=== PATIENT | male | born 1965 | race Caucasian/White ===

== ENCOUNTER → 2020-01-29 10:25 | Outpatient (BNVA) | payer MEDICARE, SELFPAY | PROVIDERS: Family Provider Nurse Practitioner Family; PCP Nurse Practitioner Family; Visit Provider Internal Medicine Cardiovascular Disease | DX: I25.5 Ischemic cardiomyopathy (principal); E78.5 Hyperlipidemia, unspecified; Z79.01 Long term (current) use of anticoagulants; R53.82 Chronic fatigue, unspecified; I25.10 Atherosclerotic heart disease of native coronary artery without angina pectoris; G47.33 Obstructive sleep apnea (adult) (pediatric); I10 Essential (primary) hypertension; E78.2 Mixed hyperlipidemia | CPT/HCPCS: 80053; 80061; 83735; 84443; 85025 ==

== ENCOUNTER → 2020-07-29 10:46 | Outpatient (BNVA) | payer MEDICARE, SELFPAY | PROVIDERS: Family Provider Nurse Practitioner Family; PCP Nurse Practitioner Family; Visit Provider Internal Medicine Cardiovascular Disease | DX: E78.2 Mixed hyperlipidemia (principal) | CPT/HCPCS: 80061 ==

== ENCOUNTER → 2020-10-07 09:50 | Outpatient (BNVA) | payer MEDICARE, SELFPAY | PROVIDERS: Family Provider Nurse Practitioner Family; PCP Nurse Practitioner Family; Visit Provider Internal Medicine Cardiovascular Disease | DX: E78.2 Mixed hyperlipidemia (principal) | CPT/HCPCS: 80061; 80076 ==

== ENCOUNTER → 2020-12-23 11:14 | Outpatient (BNVA) | payer MEDICARE, SELFPAY | PROVIDERS: Family Provider Nurse Practitioner Family; PCP Nurse Practitioner Family; Visit Provider Nurse Practitioner | DX: S99.912A Unspecified injury of left ankle, initial encounter (principal); X58.XXXA Exposure to other specified factors, initial encounter; M25.572 Pain in left ankle and joints of left foot | CPT/HCPCS: 73610; 73630 ==

== ENCOUNTER → 2021-01-27 09:37 | Outpatient (BNVA) | payer MEDICARE, SELFPAY | PROVIDERS: Family Provider Nurse Practitioner Family; PCP Nurse Practitioner Family; Visit Provider Family Medicine Adult Medicine | DX: M25.572 Pain in left ankle and joints of left foot (principal); R63.5 Abnormal weight gain; G89.29 Other chronic pain; E78.2 Mixed hyperlipidemia; I10 Essential (primary) hypertension; R53.82 Chronic fatigue, unspecified; A77.0 Spotted fever due to Rickettsia rickettsii; R55 Syncope and collapse; I25.5 Ischemic cardiomyopathy | CPT/HCPCS: 84443; 84550; 85651; 86140; 86431 ==

== ENCOUNTER 2021-02-11 07:48 | Outpatient (CLI) | payer MEDICARE, SELFPAY ==
--- NOTE | 2021-02-11 07:59 | MR_ITS ---
WS: [id number] MRI LEFT ANKLE without CONTRAST. COMPARISON: 12/23/2020 radiographs Multiplanar, multisequence imaging is performed without contrast. Motion artifact on several sequences due to patient being in pain. No acute fracture is identified. There is a very small amount of marrow edema in the medial malleolus . Also small amount of increased signal in the calcaneus near the deltoid insertion site. There is a significant amount of soft tissue inflammation surrounding the posterior tibial tendon and flexor dig itorum longus tendon at the level of the talus. Tendons are displaced from the talus. There is thicke marcy of the tendon sheath with increased fluid. No tear is identified. There is a very small amount o f increased fluid and increased T2 signal surrounding the distal flexor hallucis longus tendon over t he medial malleolus. The Achilles tendon is normal. Small amount of increased fluid and T2 signal rachel rounding the peroneus longus and brevis tendons. The soft tissue inflammatory changes are greatest al darrion the medial malleolus. Superficial and deep bands of the deltoid ligament are abnormal. Superficial ligament is slightly wav y but predominantly intact. There is increased T2 signal and loss of the normal fibers in the deep po rtion of the deltoid ligament. MR/MR ankle LT wo con* [id number] IMPRESSION: 1. Large amount of edema/tendinopathy surrounding the posterior tibial tendon and the flexor digitorum longus tendon but no tear. 2. Torn deep bands of the deltoid ligament. Thinning with suspected partial te ar of the superficial bands. 3. Very small amount of marrow edema in the medial malleolus. No fractures. 4. Very minimal tendinopathy in the flexor hallucis longus tendon. 5. Minimal increased signal in the calcaneus may be marrow injury from the del toid tear.
== END 2021-02-11 07:49 | disposition home or self-care (01) ==
LOC: RADWPI 07:53
PROVIDERS: PCP Family Medicine Adult Medicine; Visit Provider Family Medicine Adult Medicine
DX: M25.572 Pain in left ankle and joints of left foot (principal); S93.422A Sprain of deltoid ligament of left ankle, initial encounter; X58.XXXA Exposure to other specified factors, initial encounter; R60.0 Localized edema
CPT/HCPCS: 73721

== ENCOUNTER → 2021-03-03 11:34 | Outpatient (BNVA) | payer MEDICARE, SELFPAY | PROVIDERS: PCP Family Medicine Adult Medicine; Visit Provider Family Medicine Adult Medicine | DX: I10 Essential (primary) hypertension (principal); Z83.3 Family history of diabetes mellitus; R53.82 Chronic fatigue, unspecified; I25.5 Ischemic cardiomyopathy; I25.10 Atherosclerotic heart disease of native coronary artery without angina pectoris; E66.01 Morbid (severe) obesity due to excess calories | CPT/HCPCS: 80053; 83036 ==

== ENCOUNTER → 2021-03-26 15:04 | Outpatient (BNVA) | payer MEDICARE, SELFPAY | PROVIDERS: PCP Family Medicine Adult Medicine; Referring Provider Family Medicine Adult Medicine; Visit Provider Podiatrist Foot & Ankle Surgery | DX: M79.672 Pain in left foot (principal); Z46.89 Encounter for fitting and adjustment of other specified devices; S93.422A Sprain of deltoid ligament of left ankle, initial encounter; W18.42XA Slipping, tripping and stumbling without falling due to stepping into hole or opening, initial encounter | CPT/HCPCS: 73610; 73630; 97760; L4361 ==

== ENCOUNTER 2021-03-26 16:37 | Outpatient (CLI) | payer MEDICARE, SELFPAY | END 2021-03-26 16:38 | disposition home or self-care (01) | LOC: SPT 16:38 | PROVIDERS: PCP Family Medicine Adult Medicine; Visit Provider Podiatrist Foot & Ankle Surgery | DX: Z46.89 Encounter for fitting and adjustment of other specified devices (principal); S93.402D Sprain of unspecified ligament of left ankle, subsequent encounter; X58.XXXD Exposure to other specified factors, subsequent encounter | CPT/HCPCS: 97760; L4361 ==

== ENCOUNTER 2021-04-07 10:06 | Outpatient (CLI) | payer MEDICARE, SELFPAY ==
--- NOTE | 2021-04-07 10:15 | USCV_ITS ---
Jericho Pardo Jr Age: 56 Gender: M : 1965 Exam Date: 04/07/2021 10:38 Ordering Phys: Pedro Moscoso MD ([email or web address]) Technologist: Jeannie Jimenez Exam Location: [facility] [place] Indication: RECHECK EF BP: 154 / 92 HR: 74 Rhythm: Sinus Technical Quality: Adequate MEASUREMENTS (Male / Female) Normal Values 2D ECHO LV Diastolic Diameter PLAX 5.7 cm 4.2 - 5.9 / 3.9 - 5.3 cm LV Systolic Diameter PLAX 3.2 cm LV Chamber Size 3.2 cm IVS Diastolic Thickness 1.6 cm 0.6 - 1.0 / 0.6 - 0.9 cm IVS Systolic Thickness 1.8 cm LVPW Diastolic Thickness 1.2 cm 0.6 - 1.0 / 0.6 - 0.9 cm LVPW Systolic Thickness 1.7 cm RV Chamber Size 3.1 cm LVOT Diameter 2.0 cm LV Ejection Fraction 2D Teich 74.7 % LV Ejection Fraction MOD 2C 46.0 % LV Ejection Fraction 2C AL 47.7 % LA Diameter 3.7 cm LA Width 2.6 cm LA Height 2.9 cm RA Width 3.8 cm RA Height 3.9 cm Aorta at Sinotubular Diameter 3.5 cm M-MODE LV Diastolic Diameter MM 4.4 cm 4.2 - 5.9 / 3.9 - 5.3 cm LV Systolic Diameter MM 3.6 cm LV Ejection Fraction MM Teich 36.3 % IVS Diastolic Thickness MM 1.5 cm 0.6 - 1.0 / 0.6 - 0.9 cm IVS Systolic Thickness MM 1.4 cm LVPW Diastolic Thickness MM 1.5 cm 0.6 - 1.0 / 0.6 - 0.9 cm LVPW Systolic Thickness MM 1.8 cm Aortic Annulus Diameter 3.8 cm LA Ao Ratio MM 1.0 MV E Point Septal Separation 1.1 cm DOPPLER AV Peak Velocity 114.0 cm/s LVOT Peak Velocity 61.7 cm/s AV Area Cont Eq vti 2.1 cm squared AV Area Cont Eq pk 1.8 cm squared MV Area PHT 4.2 cm squared Mitral E to A Ratio 1.0 MV E' Velocity 39.0 cm/s Mitral E to MV E' Ratio 9.6 Mitral E to LV E' Lateral Ratio 11.4 Mitral E to LV E' Septal Ratio 8.3 TR Peak Velocity 113.5 cm/s TR Peak Gradient 5.2 mmHg TR Mean Velocity 85.9 cm/s TR Mean Gradient 3.4 mmHg TR Velocity Time Integral 28.3 cm PV Peak Velocity 55.0 cm/s RV Acceleration Time 0.1 s RV Ejection Time 0.4 s RV AcT/ET 0.4 FINDINGS Left Ventricle Mild diffuse hypokinesia of the septum and LV apex. LV ejection fraction around 46%.Grade I/IV diastolic dysfunction (abnormal relaxation filling pattern), normal to mildly elevated filling pressures. LV size, upper limit of normal. Segmental wall motion analysis difficult because of the poor ultrasonic window. Right Ventricle Normal right ventricular size and systolic function. Right Atrium The right atrium is normal in size. Left Atrium The left atrium is normal in size. Mitral Valve Thickened mitral valve. Mild mitral annular calcification. Aortic Valve No gross abnormalities noted Tricuspid Valve No gross abnormalities noted Pulmonic Valve Pulmonic valve not well visualized. Pericardium Normal pericardium without effusion. Aorta Normal ascending aorta dimension. CONCLUSIONS Mild diffuse hypokinesia of the septum and LV apex. LV ejection fraction around 46%. Grade I/IV diastolic dysfunction (abnormal relaxation filling pattern), normal to mildly elevated filling pressures. LV size, upper limit of normal. Segmental wall motion analysis difficult because of the poor ultrasonic window. Thickened mitral valve. Mild mitral annular calcification. There is no pericardial effusion. Compared to the study from 03/24/2017, there may not be a significant change Dr Pedro Moscoso MD [facility] (Electronically Signed) Final Date: 08 April 2021 11:43 S
== END 2021-04-07 10:07 | disposition home or self-care (01) ==
LOC: RAD 10:14
PROVIDERS: PCP Family Medicine Adult Medicine; Visit Provider Internal Medicine Cardiovascular Disease
DX: R07.89 Other chest pain (principal); I25.5 Ischemic cardiomyopathy; I34.8 Other nonrheumatic mitral valve disorders
CPT/HCPCS: 93306

== ENCOUNTER → 2021-04-14 10:31 | Outpatient (BNVA) | payer MEDICARE, SELFPAY | PROVIDERS: PCP Family Medicine Adult Medicine; Visit Provider Podiatrist Foot & Ankle Surgery | DX: M25.572 Pain in left ankle and joints of left foot (principal); Z46.89 Encounter for fitting and adjustment of other specified devices | CPT/HCPCS: 73610; 97760; L1902 ==

== ENCOUNTER 2021-04-14 15:06 | Outpatient (CLI) | payer MEDICARE, SELFPAY | END 2021-04-14 15:07 | disposition home or self-care (01) | LOC: SPT 15:08 | PROVIDERS: PCP Family Medicine Adult Medicine; Visit Provider Podiatrist Foot & Ankle Surgery | DX: Z46.89 Encounter for fitting and adjustment of other specified devices (principal); M25.572 Pain in left ankle and joints of left foot | CPT/HCPCS: 97760; L1902 ==

== ENCOUNTER → 2021-06-02 11:23 | Outpatient (BNVA) | payer MEDICARE, SELFPAY | PROVIDERS: PCP Family Medicine Adult Medicine; Visit Provider Family Medicine Adult Medicine | DX: I10 Essential (primary) hypertension (principal); R17 Unspecified jaundice | CPT/HCPCS: 80053 ==

== ENCOUNTER → 2021-12-30 10:20 | Outpatient (BNVA) | payer MEDICARE, SELFPAY | PROVIDERS: PCP Family Medicine Adult Medicine; Visit Provider Family Medicine Adult Medicine | DX: E78.2 Mixed hyperlipidemia (principal); I25.10 Atherosclerotic heart disease of native coronary artery without angina pectoris; I10 Essential (primary) hypertension; M25.572 Pain in left ankle and joints of left foot; G89.29 Other chronic pain; R17 Unspecified jaundice | CPT/HCPCS: 80053; 80061; 85025; 85651 ==

== ENCOUNTER → 2022-07-27 09:53 | Outpatient (BNVA) | payer MEDICARE, SELFPAY | PROVIDERS: PCP Family Medicine Adult Medicine; Visit Provider Internal Medicine Cardiovascular Disease | DX: I25.10 Atherosclerotic heart disease of native coronary artery without angina pectoris (principal); I25.5 Ischemic cardiomyopathy; G47.33 Obstructive sleep apnea (adult) (pediatric); E78.2 Mixed hyperlipidemia; I10 Essential (primary) hypertension; Z87.891 Personal history of nicotine dependence | CPT/HCPCS: 99214 ==

== ENCOUNTER 2022-08-03 09:59 | Outpatient (CLI) | payer MEDICARE, SELFPAY ==
[2022-08-03 11:16] LABS: Chol HDL Ratio 4.49 mg/dL (1.0-5.00); Cholesterol 193 mg/dL (0-200); HDL Cholesterol 43 mg/dL (60-100); LDL Cholesterol Calculated 104 mg/dL (50-129); LDL HDL Ratio 2.42 RATIO (0.00-3.22); Triglycerides 231 mg/dL (0-150)
== END 2022-08-03 10:00 | disposition home or self-care (01) ==
PROVIDERS: Internal Medicine Cardiovascular Disease; PCP Family Medicine Adult Medicine; Visit Provider Internal Medicine
DX: E78.5 Hyperlipidemia, unspecified (principal); E78.2 Mixed hyperlipidemia
CPT/HCPCS: 36415; 80061

== ENCOUNTER → 2023-02-08 11:34 | Outpatient (BNVA) | payer MEDICARE, SELFPAY | PROVIDERS: PCP Family Medicine Adult Medicine; Visit Provider Internal Medicine Cardiovascular Disease | DX: I25.10 Atherosclerotic heart disease of native coronary artery without angina pectoris (principal); G47.33 Obstructive sleep apnea (adult) (pediatric); I10 Essential (primary) hypertension; E78.2 Mixed hyperlipidemia; I25.5 Ischemic cardiomyopathy; R20.0 Anesthesia of skin; Z87.891 Personal history of nicotine dependence; Z79.82 Long term (current) use of aspirin | CPT/HCPCS: 99214 ==

== ENCOUNTER → 2023-08-18 10:44 | Outpatient (BNVA) | payer MEDICARE, SELFPAY | PROVIDERS: PCP Family Medicine Adult Medicine; Visit Provider Internal Medicine Cardiovascular Disease | DX: I25.5 Ischemic cardiomyopathy (principal); I25.10 Atherosclerotic heart disease of native coronary artery without angina pectoris; E78.2 Mixed hyperlipidemia; I10 Essential (primary) hypertension; Z87.891 Personal history of nicotine dependence | CPT/HCPCS: 99214 ==

== ENCOUNTER → 2024-01-27 16:30 | Outpatient (BNVA) | payer MEDICARE, SELFPAY | PROVIDERS: PCP Family Medicine Adult Medicine; Visit Provider Internal Medicine Cardiovascular Disease | DX: R06.02 Shortness of breath (principal) | CPT/HCPCS: 80048; 83880 ==

== ENCOUNTER 2024-07-30 14:55 | Inpatient (IN) | payer MEDICARE, SELFPAY ==
[2024-07-30] VITALS (40 sets, daily range): BP systolic 80–172; BP diastolic 54–85; PULSE 87–115; RESP 18–29; TEMP 36.8–38.4; O2SAT 89–94; BMI 46.2
--- NOTE | 2024-07-30 15:47 | XRR_ITS ---
PROCEDURE INFORMATION: Exam: XR Chest Exam date and time: 07/30/2024 4:16 PM Age: 59 years old Clinical indication: Fever; Prior surgery; Surgery date: 6+ months; Surgery type: Cardiac stents TECHNIQUE: Imaging protocol: Radiologic exam of the chest. Views: 1 view. COMPARISON: CT abdomen pelvis w con* [id number] 11/02/2018 1:10 PM FINDINGS: Lungs: Unremarkable. No consolidation or mass. Pleural spaces: Unremarkable. No pleural effusion. No pneumothorax. Heart/Mediastinum: Unremarkable. No cardiomegaly. Bones/joints: Unremarkable. XR/XR chest 1V portable [id number] IMPRESSION: No acute findings.
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
[2024-07-30] MEDS: acetaminophen 325 mg Tablet 650 MG PO ×2 (16:08→23:14)
[2024-07-30 16:25] LABS: Basophils # 0.1 10^3/uL (0.0-0.1); Basophils % 0.6 %; Eosinophils % 0.2 %; Hematocrit 46.6 % (37-53); Lymphocytes # 0.9 10^3/uL (0.8-4.8); Lymphocytes % 11.5 %; Mean Corpuscular HGB Conc 31.8 g/dL (30-55); Mean Corpuscular Hemoglobin 27.6 pg (27-33); Mean Corpuscular Volume 86.9 fl (82-101); Neutrophils # 6.14 10^3/uL (1.8-7.7); Neutrophils % 74.8 %; Nucleated Red Blood Cells % 0 %; Platelet Count 181 10^3/cmm (157-399); Red Blood Count 5.36 10^6/uL (3.85-5.65); Red Cell Distribution Width 14.9 % (12.1-15.1)
--- NOTE | 2024-07-30 16:39 | ECG_ITS ---
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 Measurements Intervals [place] Rate: 99 P: 53 ND: 166 QRS: -78 QRSD: 173 T: 72 QT: 381 QTc: 490 Interpretive Statements SINUS RHYTHM RIGHT BUNDLE BRANCH BLOCK [120+ ms QRS DURATION, UPRIGHT V1, 40+ ms S IN I/aVL/V4/V5/V6] LEFT ANTERIOR FASCICULAR BLOCK [QRS AXIS <= -45, QR IN I, RS IN II] ANTEROSEPTAL MYOCARDIAL INFARCTION , OF INDETERMINATE AGE [40+ ms Q WAVE IN V1-V4] No previous ECG available for comparison Electronically Signed On 07-30-2024 22:30:31 SERVICE ORDER CLERK by Pedro Moscoso M.D. [email or web address]
[2024-07-30 16:40] LABS: D Dimer 0.56 ug/mLFEU (0-0.59)
[2024-07-30 16:43] LABS: Alanine Aminotransferase 39 U/L (0-41); Albumin Level 3.9 g/dL (3.5-5.2); Alkaline Phosphatase 84 U/L (40-130); Anion Gap 18.8 (5-19); Aspartate Amino Transferase 36 U/L (0-40); Blood Urea Nitrogen 12 mg/dL (8-23); Calcium 9.5 mg/dL (8.5-10.5); Carbon Dioxide 23 mmol/L (22-29); Chloride 98 mmol/L (98-107); Creatinine Clr Calc Pharmacy 115.3883; Globulin 3.4 g/dL (1.3-4.6); Glucose 110 mg/dL (65-115); Osmolality Calculated 282 mOsm/kg (285-295); Potassium 3.8 mmol/L (3.5-5.1); Sodium 136 mmol/L (136-145); Total Bilirubin 1.7 mg/dL (0.15-1.2); Total Protein 7.3 g/dL (6.6-8.7)
[2024-07-30 16:44] LABS: Troponin(5th) Baseline 10 ng/L (0-15)
[2024-07-30 16:52] LABS: Covid PCR NEGATIVE (Negative); Influenza A POSITIVE (Negative); Influenza B NEGATIVE (Negative); Respiratory Syncytial Virus Ce NEGATIVE (Negative)
[2024-07-30 16:59] LABS: Bilirubin Urine Negative (Negative); Blood Urine Negative (Negative); Glucose Urine UA Negative (Normal); Ketones Urine Trace (Negative); Leukocyte Esterase Urine Negative (Negative); Nitrate Urine Negative (Negative); Protein Urine 1+ (Negative); Specific Gravity, Urine 1.024 (1.005-1.030); Urine Appearance Clear (CLEAR); Urine Color Yellow (Yellow); pH Urine 7.5 (5-7)
--- NOTE | 2024-07-30 17:03 | CTR_ITS ---
PROCEDURE INFORMATION: Exam: CT Chest Without Contrast; Diagnostic Exam date and time: 07/30/2024 5:18 PM Age: 59 years old Clinical indication: Hyperventilation; Additional info: Hypoxemia TECHNIQUE: Imaging protocol: Diagnostic computed tomography of the chest without contrast. Radiation optimization: All CT scans at this facility use at least one of these dose optimization techniques: automated exposure control; mA and/or kV adjustment per patient size (includes targeted exams where dose is matched to clinical indication); or iterative reconstruction. COMPARISON: CR (CHEST, ) 07/30/2024 4:16 PM RADIATION DOSE METRICS: Total DLP (mGy-cm): 747.94 FINDINGS: Lungs: Focal atelectasis involves the left lower lobe. I see no lung mass or infiltrate. Pleural spaces: Unremarkable. No pneumothorax. No pleural effusion. Heart: Unremarkable. No cardiomegaly. No pericardial effusion. Coronary arteries: Coronary artery calcifications are noted. Lymph nodes: Unremarkable. No enlarged lymph nodes. Vasculature: Unremarkable. No aortic aneurysm. Bones/joints: Unremarkable. No acute fracture. Soft tissues: Unremarkable. CT/CT chest con [id number] IMPRESSION: No acute findings.
[2024-07-30 17:04] LABS: Add Urine Microscopic? YES; Bacteria Urine None Seen /hpf; RBC Urine 0-2 /hpf (0-2); Squamous Epithelial Cell Urine 0-5 /hpf (0-5); WBC Urine 0-5 /hpf (0-5)
[2024-07-30] MEDS: acetaminophen 1,000 MG/100 ML PIGGYBACK 400 MG IV (17:36)
[2024-07-30] MEDS: doxycycline 100 MG in sodium chloride 0.9% (plus) 100 ML IV (18:10)
[2024-07-30] MEDS: sodium chloride 0.9% 1,000 ML 999 ML IV ×2 (18:14→18:47)
--- NOTE | 2024-07-30 18:18 | ECG_ITS ---
[facility] Test Date: 2024-07-30 Pat Name: Pancho Pardo Department: Room: Gender: Male Foster Parent: : 1965 Requested By: Lakeisha Berrios Order Number: [id number] Vicente MD: Pedro Moscoso M.D. Measurements Intervals [place] Rate: 84 P: 47 [place]: 164 QRS: -78 QRSD: 173 T: 65 QT: 411 QTc: 487 Interpretive Statements SINUS RHYTHM RIGHT BUNDLE BRANCH BLOCK [120+ ms QRS DURATION, UPRIGHT V1, 40+ ms S IN I/aVL/V4/V5/V6] LEFT ANTERIOR FASCICULAR BLOCK [QRS AXIS <= -45, QR IN I, RS IN II] ANTEROSEPTAL MYOCARDIAL INFARCTION , OF INDETERMINATE AGE [40+ ms Q WAVE IN V1-V4] Compared to ECG 07/30/2024 16:39:43 No significant changes Electronically Signed On 07-30-2024 22:39:00 INSURANCE LOSS ASSESSOR by Pedro Moscoso M.D. [email or web address]
[2024-07-30] MEDS: albuterol 2.5 mg/3 mL Neb INHALATION (18:23)
[2024-07-30 18:59] LABS: Troponin 5 2HR 9.28 ng/L (0-15)
[2024-07-30 19:01] LABS: Troponin 5 2HR Delta -0.72 ABS# (0-10)
[2024-07-30] MEDS: methylPREDNISolone sod succ 125 mg/2 mL INJ IVP (19:14)
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
[2024-07-30] MEDS: enoxaparin 40 mg/0.4 mL Syringe SUBCUT (20:01)
[2024-07-30] MEDS: cefTRIAXone 1,000 mg SDV 1000 MG IVP (20:02)
[2024-07-30 21:47] LABS: ABG PCO2 30.2 mmHg (35-45); ABG PH Result 7.49 (7.35-7.45); Arterial Blood Gas Hematocrit 45.8 % (42-52); Base Excess ABG 0.6 mmol/L (-2.0-2.0); Blood Gas Allen Test Pos; Blood Gas Operator Identificat JDB; Blood Gas Sample Site Radial, right; Blood Gas Sample Type Arterial; HCO3 ABG 22.9 mmol/L (22-26); Oxygen Device NC
--- NOTE | 2024-07-30 22:25 | ECG_ITS ---
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 Measurements Intervals Aneta Rate: 94 P: 60 NE: 172 QRS: -72 QRSD: 185 T: 64 QT: 422 QTc: 529 Interpretive Statements SINUS RHYTHM RIGHT BUNDLE BRANCH BLOCK [120+ ms QRS DURATION, UPRIGHT V1, 40+ ms S IN I/aVL/V4/V5/V6] LEFT ANTERIOR FASCICULAR BLOCK [QRS AXIS <= -45, QR IN I, RS IN II] ANTEROSEPTAL MYOCARDIAL INFARCTION , OF INDETERMINATE AGE [40+ ms Q WAVE IN V1-V4] Compared to ECG 07/30/2024 18:18:50 No significant changes Electronically Signed On 07-30-2024 22:39:07 INFORMATION ASSURANCE OFFICER by Pedro Moscoso M.D. [email or web address]
[2024-07-30] MEDS: ampicillin 500 mg SDV IVP (22:42)
[2024-07-30] MEDS: vancomycin 1,500 MG/300 ML PIGGYBACK 200 MG IV (22:44)
[2024-07-30 23:01] LABS: Troponin 5 6HR 10.89 ng/L (0-15); Troponin 5 6HR Delta 0.89 ng/L (0-12)
[2024-07-31] VITALS (96 sets, daily range): BP systolic 122–178; BP diastolic 65–110; PULSE 71–116; RESP 14–40; TEMP 36.4–37; O2SAT 85–97
[2024-07-31] MEDS: ipratropium-albuterol 3 mL Neb INHALATION ×3 (02:01→13:22)
[2024-07-31] MEDS: piperacillin-tazobactam 3.375 GM in sodium chloride 0.9% (plus) 50 ML IV ×3 (02:02→17:29)
[2024-07-31] MEDS: ampicillin 500 mg SDV IVP ×3 (04:15→16:18)
[2024-07-31 05:36] LABS: Basophils % 0.2 %; Hematocrit 46.3 % (37-53); Lymphocytes # 0.5 10^3/uL (0.8-4.8); Lymphocytes % 8.9 %; Mean Corpuscular HGB Conc 31.5 g/dL (30-55); Mean Corpuscular Hemoglobin 27.7 pg (27-33); Mean Corpuscular Volume 87.7 fl (82-101); Mean Platelet Volume 10.7 fL (7.4-10.4); Monocytes # 0.1 10^3/uL (0.2-0.9); Monocytes % 1.8 %; Neutrophils # 4.44 10^3/uL (1.8-7.7); Neutrophils % 88.1 %; Nucleated Red Blood Cells % 0 %; Platelet Count 142 10^3/cmm (157-399); Red Blood Count 5.28 10^6/uL (3.85-5.65); Red Cell Distribution Width 15.2 % (12.1-15.1); White Blood Count 5.04 10^3/uL (3.29-11.43)
[2024-07-31 05:52] LABS: Alanine Aminotransferase 36 U/L (0-41); Albumin Level 3.7 g/dL (3.5-5.2); Alkaline Phosphatase 77 U/L (40-130); Blood Urea Nitrogen 13 mg/dL (8-23); Calcium 8.8 mg/dL (8.5-10.5); Carbon Dioxide 22 mmol/L (22-29); Chloride 100 mmol/L (98-107); Globulin 3.5 g/dL (1.3-4.6); Glucose 181 mg/dL (65-115); Osmolality Calculated 287 mOsm/kg (285-295); Sodium 136 mmol/L (136-145); Total Bilirubin 1.2 mg/dL (0.15-1.2); Total Protein 7.2 g/dL (6.6-8.7)
[2024-07-31 05:57] LABS: Aspartate Amino Transferase 32 U/L (0-40)
[2024-07-31] MEDS: vancomycin 1,500 MG/300 ML PIGGYBACK 200 MG IV ×3 (07:41→23:15)
[2024-07-31 07:42] LABS: MRSA PCR OZH (swab) NOT DETECTED (Negative)
[2024-07-31 07:53] LABS: Glucose Point of Care 147 mg/dL (70-110)
--- NOTE | 2024-07-31 07:58 | PHA.VACGOAL ---
Vancomycin Goal - Goal Vancomycin Goal:: 15-20 mg/L Vancomycin Indication:: Other (MENNINGITIS) - Therapy Current therapy:: Ampicillin IV, Pip/Tazo Day of therpy:: Day [1]of [] . Actual body weight (kg): 154.221 kg - Data Labs: WBC 5.04 10^3/uL (3.29-11.43) 07/31/24 05:01 RBC 5.28 10^6/uL (3.85-5.65) 07/31/24 05:01 Hgb 14.60 g/dL (11.27-16.99) 07/31/24 05:01 Hct 46.3 % (37-53) 07/31/24 05:01 MCV 87.7 fl (82-101) 07/31/24 05:01 MCH 27.7 pg (27-33) 07/31/24 05:01 MCHC 31.5 g/dL (30-55) 07/31/24 05:01 RDW 15.2 % (12.1-15.1) H 07/31/24 05:01 Sodium 136 mmol/L (136-145) 07/31/24 05:01 Potassium 4.0 mmol/L (3.5-5.1) 07/31/24 05:01 Chloride 100 mmol/L (98-107) 07/31/24 05:01 Carbon Dioxide 22 mmol/L (22-29) 07/31/24 05:01 Anion Gap 18.0 (5-19) 07/31/24 05:01 BUN 13 mg/dL (8-23) 07/31/24 05:01 Creatinine 1.0 mg/dL (0.7-1.2) 07/31/24 05:01 GFR Calculation 76.0 mL/min (90-130) L 07/31/24 05:01 Treatment plan:: new consult Regimen:: 1500 MG Q8H. Trough scheduled for 07/31 @2200.
[2024-07-31] MEDS: oseltamivir phosphate 75 mg Capsule PO ×2 (09:00→17:29)
[2024-07-31] MEDS: pantoprazole DR 40 mg Tablet PO (09:00)
[2024-07-31] MEDS: acetaminophen 325 mg Tablet 650 MG PO (09:08)
--- NOTE | 2024-07-31 09:57 | PC.NURSE ---
Patient is not wanting to have LP done and is requesting to speak with doctor before having it done. Notified Dr. Castro of patient not wanting to have the LP done and wanting to talk to him about need to have LP done. Notified radiology that patient is not wanting to have LP done and that Dr. Chase has been notified that patient is wanting to talk to him prior to making a decision about having procedure.
[2024-07-31] MEDS: levalbuterol 0.63 mg/3 mL Neb INHALATION (19:49)
--- NOTE | 2024-07-31 20:43 | PM.PN ---
Subjective Subjective: He is overall feeling somewhat better. Still generally weak. Not quite as short of breath. No headache, no neck pain or stiffness. Vitals/I&O/Wt Last Vital Signs Temp 98.2 F 07/31/24 16:00 Pulse 98 07/31/24 19:52 Resp 18 07/31/24 19:52 BP 139/84 07/31/24 18:00 Pulse Ox 95 07/31/24 19:52 O2 Del Method Nasal Cannula 07/31/24 19:52 O2 Flow Rate 3 07/31/24 19:52 07/31/24 07/31/24 07/31/24 06:59 14:59 22:59 Intake Total 350 / 450 300 / 300 350 / 650 Balance 350 / 450 300 / 300 350 / 650 Weight last 48 hrs Weight 154.221 kg Weight 154.221 kg Weight 154.5 kg Weight 146.51 kg Physical Exam Narrative: Generally weak. Ill-appearing. Const: COMMON NORMALS: patient oriented x3 and alert GENERAL APPEARANCE: cooperative ORIENTATION/CONSCIOUSNESS: Yes awake HENMT: COMMON NORMALS: oropharynx normal Neck/C-Spine: COMMON NORMALS: no JVD Resp: COMMON NORMALS: normal respiratory effort and clear to auscultation bilaterally AUSCULTATION: clear to auscultation bilaterally Cardio: COMMON NORMALS: no JVD, regular rhythm, S1 normal heart sound present, S2 normal heart sound present and No murmurs present (Cardio) RHYTHM: regular rhythm HEART SOUNDS: S1 normal heart sound present and S2 normal heart sound present GI: COMMON NORMALS: Normal to inspection, nondistended, normoactive bowel sounds present, Soft to palpation and non-tender PALPATION: Yes Soft to palpation Extremity: COMMON NORMALS: no joint enlargement and no pedal edema Neuro: COMMON NORMALS: patient oriented x3 and moves all extremities SENSORIUM/ORIENTATION: Yes alert OTHER: Negative Brudzinski. Skin: COMMON NORMALS: no rashes or lesions noted GENERAL SKIN EXAM: no rashes or lesions noted Data 07/31/24 05:01 07/31/24 05:01 Micro: Microbiology 07/30/24 16:17 Blood Culture - Preliminary Blood NEGATIVE TO DATE 07/30/24 16:17 Blood Culture - Preliminary Blood NEGATIVE TO DATE 07/31/24 13:25 Gram Stain - Final Sputum - Expectorated Sputum A&P Assessment and plan (1) Hypotension: (2) Anxiety and depression: (3) Morbid obesity: (4) Influenza A: (5) Hypoxemia: (6) Obstructive sleep apnea: (7) Fever: Plan Fever with headache and hallucination along syncope Severe influenza with systemic symptoms with hypotension. New hypoxia. Continue Tamiflu. Initial concern for complication with meningitis. He expressed he did not want to have LP, although without meningeal signs. LP canceled. For now empirically on broad-spectrum antibiotics given severity of presentation. Stopped ampicillin. Continue Zosyn, vancomycin for now, will discontinue in case of continued improvement. Patient is not confused I would not add acyclovir at this point He has also received antibiotics, received IV steroids in the ER He also received 2 L bolus Discussed with respite therapy, switch to levo butyryl due to some tachycardia with breathing treatments. Hypotension: Reviewed vitals, CBC, chemistry, hypotension so far resolved. Weaned off pressor. Stop Levophed discussed with nursing, case making machine operator. Transfer out of ICU. Hold antihypertensives. Trial of clear liquid diet. History of CHF, hold antihypertensive regimen along diuretics Patient's blood pressure improved with gentle fluid hydration Ischemic cardiomyopathy EF 46%: Closely monitor for any sign of fluid overload because he is getting multiple antibiotics Compensated for now History of obstructive sleep apnea Will use CPAP overnight currently requiring 3 L which is new requirement of oxygen for him In anticipation of lumbar puncture in the morning hold off on Lovenox DVT prophylaxis Cardiac diet Isolation precautions On discussion with him currently without headache, Sarika is negative. Attestations Medical Necessity Statement*: Continue admission for assessment and management of severe influenza A illness. and High MDM includes amount and/or complexity of data reviewed/ordered [ resulted lab(s)/test(s), ordered lab(s)/test(s) and other healthcare professional discussion] as documented Diagnoses Hypotension I95.9 Anxiety and depression F41.9; F32.A Morbid obesity E66.01 Influenza A J10.1 Hypoxemia R09.02 Obstructive sleep apnea G47.33 Fever R50.9
[2024-07-31 23:13] LABS: Vancomycin Trough 14.9 ug/mL (10-15)
[2024-08-01] VITALS (30 sets, daily range): BP systolic 123–161; BP diastolic 64–91; PULSE 65–99; RESP 14–25; TEMP 36.8–36.9; O2SAT 84–99
[2024-08-01] MEDS: piperacillin-tazobactam 3.375 GM in sodium chloride 0.9% (plus) 50 ML IV ×3 (01:00→18:12)
[2024-08-01] MEDS: levalbuterol 0.63 mg/3 mL Neb INHALATION ×3 (01:53→14:02)
[2024-08-01 03:32] LABS: Basophils % 0.3 %; Eosinophils % 0.1 %; Hematocrit 47.7 % (37-53); Lymphocytes # 1.5 10^3/uL (0.8-4.8); Mean Corpuscular HGB Conc 31.2 g/dL (30-55); Mean Corpuscular Hemoglobin 27.7 pg (27-33); Mean Corpuscular Volume 88.8 fl (82-101); Mean Platelet Volume 10.1 fL (7.4-10.4); Monocytes # 1.1 10^3/uL (0.2-0.9); Monocytes % 10.9 %; Neutrophils # 7.79 10^3/uL (1.8-7.7); Neutrophils % 74.2 %; Nucleated Red Blood Cells % 0 %; Platelet Count 168 10^3/cmm (157-399); Red Blood Count 5.37 10^6/uL (3.85-5.65); Red Cell Distribution Width 15.3 % (12.1-15.1); White Blood Count 10.49 10^3/uL (3.29-11.43)
[2024-08-01 03:54] LABS: Alanine Aminotransferase 32 U/L (0-41); Albumin Level 3.9 g/dL (3.5-5.2); Alkaline Phosphatase 74 U/L (40-130); Anion Gap 16.1 (5-19); Aspartate Amino Transferase 22 U/L (0-40); Blood Urea Nitrogen 13 mg/dL (8-23); Calcium 9.1 mg/dL (8.5-10.5); Carbon Dioxide 27 mmol/L (22-29); Chloride 102 mmol/L (98-107); Creatinine Clr Calc Pharmacy 118.7726; Globulin 3.1 g/dL (1.3-4.6); Glucose 113 mg/dL (65-115); Osmolality Calculated 293 mOsm/kg (285-295); Potassium 4.1 mmol/L (3.5-5.1); Sodium 141 mmol/L (136-145); Total Bilirubin 1.2 mg/dL (0.15-1.2)
[2024-08-01] MEDS: oseltamivir phosphate 75 mg Capsule PO ×2 (08:42→18:12)
[2024-08-01] MEDS: pantoprazole DR 40 mg Tablet PO (08:42)
[2024-08-01] MEDS: vancomycin 1,500 MG/300 ML PIGGYBACK 200 MG IV ×3 (08:42→23:09)
--- NOTE | 2024-08-01 19:59 | PM.PN ---
Subjective Subjective: He has intermittent burning, bothersome cough especially after breathing treatments. Feels like there is phlegm buildup/chest congestion which he cannot bring up. He is worried about his who seems to also be developing symptoms of acute viral illness. Vitals/I&O/Wt Last Vital Signs Temp 98.5 F 08/01/24 09:44 Pulse 81 08/01/24 18:00 Resp 22 H 08/01/24 18:00 BP 161/87 08/01/24 19:00 Pulse Ox 97 08/01/24 18:00 O2 Del Method Nasal Cannula 08/01/24 14:00 O2 Flow Rate 3 08/01/24 14:00 08/01/24 08/01/24 08/01/24 06:59 14:59 22:59 Intake Total 350 / 1050 300 / 300 350 / 650 Balance 350 / 1050 300 / 300 350 / 650 Weight last 48 hrs Weight 153.314 kg Weight 154.221 kg Weight 154.221 kg Weight 154.5 kg Physical Exam Narrative: Generally weak. Ill-appearing. Const: COMMON NORMALS: patient oriented x3 and alert GENERAL APPEARANCE: cooperative ORIENTATION/CONSCIOUSNESS: Yes awake HENMT: COMMON NORMALS: oropharynx normal Neck/C-Spine: COMMON NORMALS: no JVD Resp: COMMON NORMALS: normal respiratory effort and clear to auscultation bilaterally AUSCULTATION: clear to auscultation bilaterally Cardio: COMMON NORMALS: no JVD, regular rhythm, S1 normal heart sound present, S2 normal heart sound present and No murmurs present (Cardio) RHYTHM: regular rhythm HEART SOUNDS: S1 normal heart sound present and S2 normal heart sound present GI: COMMON NORMALS: Normal to inspection, nondistended, normoactive bowel sounds present, Soft to palpation and non-tender PALPATION: Yes Soft to palpation Extremity: COMMON NORMALS: no joint enlargement and no pedal edema Neuro: COMMON NORMALS: patient oriented x3 and moves all extremities SENSORIUM/ORIENTATION: Yes alert OTHER: Negative Brudzinski. Skin: COMMON NORMALS: no rashes or lesions noted GENERAL SKIN EXAM: no rashes or lesions noted Data 08/01/24 02:58 08/01/24 02:58 Micro: Microbiology 07/31/24 13:25 Gram Stain - Final Sputum - Expectorated Sputum Sputum Culture - Preliminary 07/30/24 16:17 Blood Culture - Preliminary Blood NEGATIVE TO DATE 07/30/24 16:17 Blood Culture - Preliminary Blood NEGATIVE TO DATE A&P Assessment and plan (1) Hypotension: (2) Anxiety and depression: (3) Morbid obesity: (4) Influenza A: (5) Hypoxemia: (6) Obstructive sleep apnea: (7) Fever: Plan Influenza A pneumonia: Severe pneumonia with influenza A with hypoxia, requiring 3 L of oxygen stable. Still desaturating down into low 80s with short distance ambulation trying to walk to the bathroom. Still chest congestion, difficulty bringing up phlegm. Wheezing. Continue breathing treatments, although these do trigger uncomfortable cough. Had guaifenesin, flutter valve, Tessalon Perles. Continue Zosyn, vancomycin for now, monitor for risk of kidney injury with antibiotic combination. Reviewed vitals, CBC, CMP, Vanco trough. Continue oxygen support, wean down as tolerating. Discussed with nursing, RT, test case developer. Has not transfer out of CCU there were no floor beds. Transfer when available. Fever with headache and hallucination along syncope Hypotension: Resolved. Weaned off pressor. Stop Levophed discussed with nursing, test case developer. Transfer out of ICU. Hold antihypertensives. Trial of clear liquid diet. History of CHF, hold antihypertensive regimen along diuretics Patient's blood pressure improved with gentle fluid hydration Ischemic cardiomyopathy EF 46%: Closely monitor for any sign of fluid overload because he is getting multiple antibiotics Compensated for now History of obstructive sleep apnea Will use CPAP overnight currently requiring 3 L which is new requirement of oxygen for him In anticipation of lumbar puncture in the morning hold off on Lovenox DVT prophylaxis Cardiac diet Isolation precautions On discussion with him currently without headache, Renatodziyneski is negative. Low suspicion for meningitis. Lumbar puncture has been canceled. Attestations Medical Necessity Statement*: Continue admission for assessment and management of severe influenza A illness. Diagnoses Hypotension I95.9 Anxiety and depression F41.9; F32.A Morbid obesity E66.01 Influenza A J10.1 Hypoxemia R09.02 Obstructive sleep apnea G47.33 Fever R50.9
[2024-08-01] MEDS: guaiFENesin 600 mg Tablet 1200 MG PO (20:48)
[2024-08-02] VITALS (14 sets, daily range): BP systolic 132–155; BP diastolic 79–91; PULSE 75–103; RESP 16–22; TEMP 36.5–37.1; O2SAT 90–96
[2024-08-02] MEDS: levalbuterol 0.63 mg/3 mL Neb INHALATION ×4 (01:48→22:43)
[2024-08-02] MEDS: piperacillin-tazobactam 3.375 GM in sodium chloride 0.9% (plus) 50 ML IV ×3 (02:15→16:53)
[2024-08-02] MEDS: vancomycin 1,500 MG/300 ML PIGGYBACK 200 MG IV (07:26)
[2024-08-02] MEDS: pantoprazole DR 40 mg Tablet PO (07:27)
[2024-08-02] MEDS: oseltamivir phosphate 75 mg Capsule PO ×2 (07:27→16:54)
[2024-08-02] MEDS: guaiFENesin 600 mg Tablet 1200 MG PO ×2 (07:27→16:54)
[2024-08-02 08:21] LABS: Basophils % 0.6 %; Eosinophils # 0.1 10^3/uL (0.0-0.8); Eosinophils % 2.3 %; Hematocrit 46.3 % (37-53); Lymphocytes # 1.2 10^3/uL (0.8-4.8); Lymphocytes % 23.6 %; Mean Corpuscular HGB Conc 30.5 g/dL (30-55); Mean Corpuscular Hemoglobin 27.6 pg (27-33); Mean Corpuscular Volume 90.8 fl (82-101); Mean Platelet Volume 10.3 fL (7.4-10.4); Monocytes # 0.7 10^3/uL (0.2-0.9); Monocytes % 13.7 %; Neutrophils % 59.4 %; Nucleated Red Blood Cells % 0 %; Platelet Count 152 10^3/cmm (157-399); Red Cell Distribution Width 15.3 % (12.1-15.1); White Blood Count 4.88 10^3/uL (3.29-11.43)
[2024-08-02 08:43] LABS: Alanine Aminotransferase 36 U/L (0-41); Albumin Level 3.7 g/dL (3.5-5.2); Alkaline Phosphatase 63 U/L (40-130); Aspartate Amino Transferase 29 U/L (0-40); Blood Urea Nitrogen 10 mg/dL (8-23); Calcium 8.7 mg/dL (8.5-10.5); Carbon Dioxide 23 mmol/L (22-29); Chloride 104 mmol/L (98-107); Creatinine Clr Calc Pharmacy 132.5449; Globulin 2.4 g/dL (1.3-4.6); Glomerular Filtration Rate 85.8 mL/min (90-130); Glucose 99 mg/dL (65-115); Osmolality Calculated 285 mOsm/kg (285-295); Sodium 138 mmol/L (136-145); Total Protein 6.1 g/dL (6.6-8.7)
[2024-08-02 08:47] LABS: Anion Gap 14.8 (5-19); Potassium 3.8 mmol/L (3.5-5.1)
--- NOTE | 2024-08-02 09:04 | XRR_ITS ---
PROCEDURE INFORMATION: Exam: XR Chest Exam date and time: 08/02/2024 9:28 AM Age: 59 years old Clinical indication: Shortness of breath; Additional info: Hypoxia, flu TECHNIQUE: Imaging protocol: Radiologic exam of the chest. Views: 1 view. COMPARISON: CT chest con [id number] 07/30/2024 5:18 PM FINDINGS: Lungs: Streaky linear opacity in the lo right lower lung zone. Pleural spaces: Blunting of the left costophrenic angle may represent small pleural effusion versus atelectasis. No pneumothorax. Heart/Mediastinum: Cardiomediastinal silhouette is unremarkable. Bones/joints: Unremarkable. XR/XR chest 1V portable [id number] IMPRESSION: 1. Streaky linear right lower lung opacity suggesting atelectasis or developing infiltrate. 2. Small left pleural effusion versus left basilar atelectasis atelectasis.
--- NOTE | 2024-08-02 11:30 | PC.NURSE ---
Pt provided with I.S. and instructed on it's use. Encouraged to [facility].
--- NOTE | 2024-08-02 13:09 | PC.SOCIAL ---
IMM Updated. Updated pt on IMM. No questions voiced. Provided pt a copy. Initialed, dated, & timed a copy & placed in chart.
[2024-08-02 14:49] LABS: Vancomycin Trough 21.7 ug/mL (10-15)
[2024-08-02] MEDS: vancomycin 1,250 MG/250 ML PIGGYBACK 200 MG IV (18:42)
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
[2024-08-02] MEDS: budesonide 0.5 mg/2 mL Neb INHALATION (22:43)
[2024-08-03] VITALS (10 sets, daily range): BP systolic 140–164; BP diastolic 79–97; PULSE 86–96; RESP 18–20; TEMP 36.4–36.9; O2SAT 90–94
[2024-08-03] MEDS: vancomycin 1,250 MG/250 ML PIGGYBACK 200 MG IV ×2 (01:35→08:55)
[2024-08-03] MEDS: levalbuterol 0.63 mg/3 mL Neb INHALATION ×2 (02:27→08:18)
[2024-08-03] MEDS: piperacillin-tazobactam 3.375 GM in sodium chloride 0.9% (plus) 50 ML IV (02:54)
[2024-08-03 03:47] LABS: C.Diff PCR (Lab) NEGATIVE (Negative)
[2024-08-03 04:38] LABS: Basophils % 0.4 %; Eosinophils # 0.1 10^3/uL (0.0-0.8); Eosinophils % 2.1 %; Hematocrit 45.2 % (37-53); Lymphocytes # 1.4 10^3/uL (0.8-4.8); Lymphocytes % 29.1 %; Mean Corpuscular HGB Conc 30.8 g/dL (30-55); Mean Corpuscular Hemoglobin 28.4 pg (27-33); Mean Corpuscular Volume 92.2 fl (82-101); Mean Platelet Volume 9.9 fL (7.4-10.4); Monocytes # 0.6 10^3/uL (0.2-0.9); Monocytes % 12.4 %; Neutrophils # 2.67 10^3/uL (1.8-7.7); Neutrophils % 55.2 %; Nucleated Red Blood Cells % 0 %; Platelet Count 152 10^3/cmm (157-399); Red Cell Distribution Width 15.1 % (12.1-15.1); White Blood Count 4.84 10^3/uL (3.29-11.43)
[2024-08-03 04:57] LABS: Blood Urea Nitrogen 6 mg/dL (8-23); Calcium 8.8 mg/dL (8.5-10.5); Carbon Dioxide 23 mmol/L (22-29); Chloride 102 mmol/L (98-107); Creatinine Clr Calc Pharmacy 132.5449; Glomerular Filtration Rate 85.8 mL/min (90-130); Glucose 103 mg/dL (65-115); Osmolality Calculated 284 mOsm/kg (285-295); Sodium 138 mmol/L (136-145)
[2024-08-03 04:59] LABS: Anion Gap 16.5 (5-19); Potassium 3.5 mmol/L (3.5-5.1)
[2024-08-03] MEDS: acetaminophen 325 mg Tablet 650 MG PO (05:59)
[2024-08-03] MEDS: budesonide 0.5 mg/2 mL Neb INHALATION (08:18)
[2024-08-03] MEDS: oseltamivir phosphate 75 mg Capsule PO (08:55)
[2024-08-03] MEDS: pantoprazole DR 40 mg Tablet PO (08:55)
[2024-08-03] MEDS: guaiFENesin 600 mg Tablet 1200 MG PO (08:55)
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
--- NOTE | 2024-08-03 12:43 | PC.NURSE ---
Discharge instructions provided to pt and his . NO questions or concerns voiced at this time. Pt to private vehicle via wheelchair.
== END 2024-08-03 13:12 | disposition home or self-care (01) | DRG 194 ==
LOC: ER 18:20 → ICU 18:24 → MEDSURG 08-02 02:08
PROVIDERS: Emergency Medicine; Internal Medicine; Admitting Provider Student in an Organized Health Care Education/Training Program; Emergency Provider Emergency Medicine; PCP Family Medicine Adult Medicine; Visit Provider Internal Medicine
DX: J10.00 Influenza due to other identified influenza virus with unspecified type of pneumonia (principal); R44.3 Hallucinations, unspecified; Z68.42 Body mass index [BMI] 45.0-49.9, adult; I50.9 Heart failure, unspecified; I11.0 Hypertensive heart disease with heart failure; F41.9 Anxiety disorder, unspecified; F32.A Depression, unspecified; E11.9 Type 2 diabetes mellitus without complications; E66.01 Morbid (severe) obesity due to excess calories; G47.33 Obstructive sleep apnea (adult) (pediatric); G89.29 Other chronic pain; M54.9 Dorsalgia, unspecified; E78.5 Hyperlipidemia, unspecified; I25.10 Atherosclerotic heart disease of native coronary artery without angina pectoris; I25.5 Ischemic cardiomyopathy; R19.7 Diarrhea, unspecified; I95.9 Hypotension, unspecified; R09.02 Hypoxemia; Z79.82 Long term (current) use of aspirin; Z87.891 Personal history of nicotine dependence; Z88.5 Allergy status to narcotic agent; Z82.49 Family history of ischemic heart disease and other diseases of the circulatory system; Z83.3 Family history of diabetes mellitus; Z82.0 Family history of epilepsy and other diseases of the nervous system; Z82.3 Family history of stroke
CPT/HCPCS: 0241U; 36415; 36416; 71045; 71250; 80048; 80053; 80202; 81001; 82803; 82962; 83605; 83735; 84484; 85025; 85378; 87040; 87070; 87205; 87493; 93005; 94640; 94664; 94760; 96365; 96367; 96372; 96374; 96375; 96376; 99285; J0131; J0290; J0696; J1650; J2543; J2919; J3370; J3490; J7030; J7613; J7614; J7626

== ENCOUNTER → 2024-11-06 13:29 | Outpatient (BNVA) | payer MEDICARE, SELFPAY | PROVIDERS: PCP Family Medicine Adult Medicine; Visit Provider Nurse Practitioner Family | DX: I10 Essential (primary) hypertension (principal); I25.5 Ischemic cardiomyopathy; R07.9 Chest pain, unspecified; I45.10 Unspecified right bundle-branch block; I44.4 Left anterior fascicular block; I25.2 Old myocardial infarction; R94.31 Abnormal electrocardiogram [ECG] [EKG] | CPT/HCPCS: 36415; 80048; 83735; 83880; 93005; 99214 ==

== ENCOUNTER 2024-12-11 07:56 | Outpatient (CLI) | payer MEDICARE, SELFPAY ==
--- NOTE | 2024-12-11 | ECG_ITS ---
handsome[facility] Test Date: 2024-12-11 Pat Name: Pancho Pardo Department: Room: Gender: Male Choral Director: : 1965 Requested By: Maryuri Gray Order Number: [id number] Vicente MD: MARIIA PALOMARES Interpretive Statements Lung unchanged pre/post procedure; Intraprocedure shortess of breath; Symptoms resoled by discharge NOTE: Please note that this is the electrocardiogram portion of the Lexiscan/Sestamibi stress test. The perfusion scan will be documented separately. DATA: Baseline heart rate was 78 beats per minute. Baseline blood pressure was 138/89 millimeters of mercury. Target heart rate was 159. Maximum heart rate achieved was 94. which was 59% of the predicted target heart rate. Maximum blood pressure was 152/95 millimeters of mercury. The reason for ending the test was completion of the protocol, patient did not experience any symptoms. ELECTROCARDIOGRAM: BASELINE: Sinus rhythm. Left axis. Right bundle branch block, otherwise, no ST-T changes suggestive of ischemia noted. Frequent PVCs noted EXERCISE: After Lexiscan injection, no ST-T changes suggestive of ischemic noted. No arrhythmia noted. CONCLUSION: Please note due to baseline abnormality of the EKG specificity and sensitivity of the EKG portion of LexiScan MIBI stress test will be low 1. EKG not suggestive of ischemia 2. Lexiscan injection unremarkable. 3. Perfusion scan will be documented separately. Electronically Signed On 12-19-2024 18:53:35 CDT by MARIIA PALOMARES [email or web address]
[2024-12-11 08:22] VITALS: BMI 45.6
--- NOTE | 2024-12-11 08:29 | NMCV_ITS ---
NM viktoria perf SPECT r/s* [id number] Dieter Pardorayna Age: 59 Gender: M : 1965 Exam Date: 12/11/2024 09:04 Ordering Phys: Maryuri Gray NP Technologist: CONOR Vigil Exam Location: [facility] Indications: cp STRESS TEST Please see separate stress test report in [facility] for full findings IMAGE PROTOCOL Rest/Stress 1 Lexiscan Day Radiopharmaceutical Dose (mCi) Administration Site Administered by Rest: Tc-99m 10.4 IV Zee Harper, AUTOMAT WATCHER Sestamibi Stress:Tc-99m 33 IV Zee Meredith, AUTOMAT WATCHER Sestamibi Rest: 12/11/2024 60 Discovery 630 Stress: 12/11/2024 30 Discovery 630 0.4mg Lexiscan. Supine position only as patient was unable to lay prone. SPECT RESULTS Technical Quality: Good Raw Data Analysis: Normal Image Corrections: No attenuation or motion correction applied Summed Stress Score: 32 Summed Rest Score: 38 Summed Difference Score: 1 PERFUSION FINDINGS Large area of fixed perfusion defect noted in basal to distal anteroseptal basal to distal inferoseptal and basal to distal inferior inferolateral wall fixed perfusion defect suggestive of old myocardial infarction with minimal lauro-infarct ischemia. FUNCTIONAL RESULTS (calculated via Gated SPECT) Stress Image LV EF (%): 39 Stress EDV (mL):225 TID: 1.08 Stress ESV (mL):138 FUNCTIONAL FINDINGS: There appeared to be inferior inferolateral and antral septal akinesis IMPRESSIONS Large area of fixed perfusion defect noted in basal to distal anteroseptal basal to distal inferoseptal and basal to distal inferior inferolateral wall fixed perfusion defect suggestive of old myocardial infarction with minimal lauro-infarct ischemia. Broderick Parekh MD (Electronically Signed) Final Date: 19 Dec 2024 12:22 S
[2024-12-11] MEDS: regadenoson 0.4 Mg/5 ml Syringe IVP (09:39)
[2024-12-11 09:55] VITALS: BP 131/90; PULSE 81
[2024-12-11] MEDS: perflutren protein-a microsphr 0.22 mg/mL SDV 3 mL IV (10:40)
== END 2024-12-11 07:57 | disposition home or self-care (01) ==
LOC: CDL 07:59
PROVIDERS: PCP Internal Medicine Cardiovascular Disease; Visit Provider Nurse Practitioner Family
DX: R07.9 Chest pain, unspecified (principal); R93.1 Abnormal findings on diagnostic imaging of heart and coronary circulation
CPT/HCPCS: 36415; 78452; 93017; 93306; 96374; A9500; C8929; J2785

== ENCOUNTER → 2025-01-29 15:20 | Outpatient (BNVA) | payer MEDICARE, SELFPAY | PROVIDERS: Visit Provider Internal Medicine Cardiovascular Disease | DX: I25.5 Ischemic cardiomyopathy (principal); I25.10 Atherosclerotic heart disease of native coronary artery without angina pectoris; E78.2 Mixed hyperlipidemia; I10 Essential (primary) hypertension; E66.01 Morbid (severe) obesity due to excess calories; Z68.42 Body mass index [BMI] 45.0-49.9, adult | CPT/HCPCS: 99214 ==

== ENCOUNTER 2025-02-21 13:30 | Inpatient (IN) | payer MEDICARE, SELFPAY ==
[2025-02-21] VITALS (29 sets, daily range): BP systolic 125–185; BP diastolic 71–160; PULSE 67–94; RESP 16–28; TEMP 36.4–36.8; O2SAT 86–97; BMI 46.0
--- NOTE | 2025-02-21 13:34 | ECG_ITS ---
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 Measurements Intervals [place] Rate: 96 P: 44 TX: 162 QRS: -79 QRSD: 165 T: 59 QT: 406 QTc: 514 Interpretive Statements SINUS RHYTHM RIGHT BUNDLE BRANCH BLOCK [120+ ms QRS DURATION, UPRIGHT V1, 40+ ms S IN I/aVL/V4/V5/V6] LEFT ANTERIOR FASCICULAR BLOCK [QRS AXIS <= -45, QR IN I, RS IN II] ANTEROSEPTAL MYOCARDIAL INFARCTION , OF INDETERMINATE AGE [40+ ms Q WAVE IN V1-V4] INTERPRETATION BASED ON A DEFAULT AGE OF 40 YEARS Compared to ECG 11/06/2024 13:36:15 No significant changes Electronically Signed On 02-21-2025 20:01:27 CDT by Pedro Moscoso M.D. [email or web address]
--- NOTE | 2025-02-21 13:38 | XRR_ITS ---
PROCEDURE INFORMATION: Exam: XR Chest Exam date and time: 02/21/2025 2:07 PM Age: 60 years old Clinical indication: Pain; Angina pectoris; Additional info: Chest pain TECHNIQUE: Imaging protocol: Radiologic exam of the chest. Views: 1 view. COMPARISON: CR XR chest 1V portable [id number] 08/02/2024 9:28 AM FINDINGS: Lungs: Mild left basilar streaky opacities. Pleural spaces: No large pleural effusion or appreciable pneumothorax. Heart/Mediastinum: No cardiomegaly. Bones/joints: No acute abnormality. XR/XR chest 1V portable [id number] IMPRESSION: Mild left basilar streaky opacities, likely atelectasis or scarring versus possible airspace disease.
[2025-02-21 13:54] LABS: Hematocrit 44.8 % (37-53); Hemoglobin 14.50 g/dL (11.27-16.99); Mean Corpuscular HGB Conc 32.4 g/dL (30-55); Mean Corpuscular Hemoglobin 28.0 pg (27-33); Mean Corpuscular Volume 86.5 fl (82-101); Nucleated Red Blood Cells % 0 %; Platelet Count 210 10^3/cmm (157-399); Red Blood Count 5.18 10^6/uL (3.85-5.65); White Blood Count 9.15 10^3/uL (3.29-11.43)
[2025-02-21 14:12] LABS: Troponin(5th) Baseline 67 ng/L (0-15)
[2025-02-21 14:18] LABS: Alanine Aminotransferase 25 U/L (0-41); Albumin Level 4.0 g/dL (3.5-5.2); Alkaline Phosphatase 87 U/L (40-130); Anion Gap 19.1 (5-19); Aspartate Amino Transferase 18 U/L (0-40); Blood Urea Nitrogen 21 mg/dL (8-23); Calcium 9.2 mg/dL (8.5-10.5); Carbon Dioxide 24 mmol/L (22-29); Chloride 101 mmol/L (98-107); Creatinine Clr Calc Pharmacy 106.6083; Globulin 2.6 g/dL (1.3-4.6); Glucose 118 mg/dL (65-115); Osmolality Calculated 294 mOsm/kg (285-295); Potassium 4.1 mmol/L (3.5-5.1); Sodium 140 mmol/L (136-145); Total Protein 6.6 g/dL (6.6-8.7)
[2025-02-21 14:29] LABS: NT Pro B Type Natriuretic Pept 436 pg/mL (0-125)
--- NOTE | 2025-02-21 14:33 | PC.NURSE ---
Pt started complaining of increased chest pain, spoke w/Dr. Meza, we did a repeat EKG, but Derrick gave no other orders.
--- NOTE | 2025-02-21 14:38 | CTR_ITS ---
PROCEDURE INFORMATION: Exam: CTA Abdomen and Pelvis With Contrast Exam date and time: 02/21/2025 3:18 PM Age: 60 years old Clinical indication: Screening exam; Purpose: Dissection protocol; Prior surgery; Surgery date: 6+ months; Surgery type: Gb, appy, hernia; Back pain; PT states back pain wo trauma xseveral months. PT states pain is constant and relentless TECHNIQUE: Imaging protocol: Computed tomographic angiography of the abdomen and pelvis with contrast. Exam focused on the arteries. 3D rendering (Not supervised by radiologist): MIP and/or 3D reconstructed images were created by the technologist. Radiation optimization: All CT scans at this facility use at least one of these dose optimization techniques: automated exposure control; mA and/or kV adjustment per patient size (includes targeted exams where dose is matched to clinical indication); or iterative reconstruction. Contrast material: OMNI 350; Contrast volume: 125 ml; Contrast route: INTRAVENOUS (IV); Other technique: CTA of the Chest was performed along with routine CT imaging of the abdomen and pelvis in the portal venous phase. Sagittal and coronal reconstructions are provided. 3D MIP reconstructed images are provided for review of the chest.; CT imaging performed at this location utilizes radiation dose optimization techniques which include one or more of the following: Automated exposure control, adjustment of the mA and/or kV according to patient size, use of iterative reconstruction technique. ORAL CONTRAST: NONE COMPARISON: CT abdomen pelvis w con* [id number] 11/02/2018 1:10 PM RADIATION DOSE METRICS: Total DLP (mGy-cm): 1581.9 FINDINGS: Lungs: Atelectatic changes identified in the posterior aspect of both lungs. No pulmonary masses or inflammatory infiltrates are present. No interstitial lung disease is suspected. A calcified granuloma is seen peripherally right lung base. This is unchanged from prior study. The central airway is normal. Pleural spaces: No pneumothorax. No pleural effusion. Heart: The heart size is within normal limits. There is no pericardial effusion. There are coronary artery atherosclerotic changes present. No right heart strain. Pulmonary arteries: No evidence for proximal segmental or larger pulmonary emboli.. The main pulmonary arteries and outflow trunk are unremarkable. Aorta: Minimal aortic atheromatous calcification is seen at the aortic arch. There is no dissection or aneurysm. Celiac trunk and mesenteric arteries: No occlusion or significant stenosis. Renal arteries: Takeoffs of the mesenteric and renal arteries are unremarkable. IVC and portal venous structures are unremarkable. Right iliac arteries: No occlusion or significant stenosis. Left iliac arteries: No occlusion or significant stenosis. Liver: A cyst in the left hepatic lobe is identified, measuring 25 mm in diameter, increased from 20 mm on the prior study. Gallbladder and biliary ducts: Prior cholecystectomy. Pancreas: Normal. No ductal dilation. Spleen: The spleen is normal. A small splenule is seen. There has been no change. Adrenal glands: Normal. No mass. Kidneys and ureters: Normal. No hydronephrosis. Stomach and bowel: Stomach, small, and large bowel loops are unremarkable. Appendix: Prior appendectomy Intraperitoneal space: Upper Abdomen: See below. Normal. No free air. No significant fluid collection. Lymph nodes: No enlarged lymph nodes. Normal. No enlarged lymph nodes. Urinary bladder: Unremarkable as visualized. Reproductive: Stable mild prostatomegaly. 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 No acute fracture. No dislocation. Soft tissues: Unremarkable. Other findings: PELVIS:; Vasculature:; Normal. No abdominal aortic aneurysm. CT/CT [facility] [id number] IMPRESSION: 1. No acute abdomen and pelvis findings. 2. No evidence of aortic aneurysm, dissection or significant atherosclerotic change. 3. Mild interval increase in left hepatic lobe cyst versus cavernous hemangioma. 4. No CT evidence for pulmonary embolism. 5. No aortic dissection or aneurysm. 6. Mild bilateral pulmonary dependent atelectatic change and stable old granulomatous calcification, right lower lobe.
--- NOTE | 2025-02-21 14:38 | CT_ITS ---
WS: [id number] Exam: CT cervical spin wo con* [id number] Date/Time of Exam: 02/21/2025 3:22 PM Reason For Exam: right arm radiculopathy DLP: 669.[address] scans at [facility] use at least one of these dose optimization techniques: automated exposure control; mA and/or kV adjustment per patient size (includes targeted exams where dose is matched to clinical indication); or iterative reconstruction. No acute fracture or malalignment of the cervical spine. The bony neural foramina are patent. The discs are relatively well-maintained. Mild facet DJD at all levels. The dens is intact. The bony spinal canal is patent. No obvious mass or lymphadenopathy in the visualized neck. Lung apices and visualized upper mediastinum are unremarkable. CT/CT cervical spin wo con* [id number] IMPRESSION: 1. Mild degenerative changes. No fracture or malalignment. 2. The bony spinal canal and neural foramina are patent as visualized.
[2025-02-21] MEDS: iohexol 350 mg/mL 500 mL Btl (per mL) IV ×2 (15:22→15:38)
[2025-02-21 16:15] LABS: Troponin 5 2HR 107.3 ng/L (0-15); Troponin 5 2HR Delta 40.3 ABS# (0-10)
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
[2025-02-21] MEDS: heparin 5,000 unit/mL INJ 1 mL IVP (17:22)
[2025-02-21] MEDS: heparin drip 25,000 UNIT/500 ML PREMIX 43 UNIT IV (17:24)
[2025-02-21 19:11] LABS: Procalcitonin 0.08 ng/mL (0-0.5); Thyroid Stimulating Hormone 1.49 uIU/mL (0.27-4.20); Vitamin B12 274 pg/mL (232-1245)
[2025-02-21 19:12] LABS: Estmated Average Glucose 117; Hemoglobin A1C 5.7 % (4.0-6.0)
[2025-02-21 19:22] LABS: Iron 69 ug/dL (59-158); Total Iron Binding Capacity 324 mcg/dl; Unsaturated Iron Binding 255 ug/dL (112-347)
--- NOTE | 2025-02-21 19:38 | ECG_ITS ---
[employer] Test Date: 2025-02-21 Pat Name: Pancho Pardo Department: Room: 112 Gender: Male Intensive Care Medicine Specialist: : [id number] Requested By: Moris Meza Order Number: [id number] Vicente MD: Pedro Moscoso M.D. Measurements Intervals [place] Rate: 81 P: 53 MN: 182 QRS: -76 QRSD: 173 T: 73 QT: 425 QTc: 495 Interpretive Statements SINUS RHYTHM RIGHT BUNDLE BRANCH BLOCK [120+ ms QRS DURATION, UPRIGHT V1, 40+ ms S IN I/aVL/V4/V5/V6] LEFT ANTERIOR FASCICULAR BLOCK [QRS AXIS <= -45, QR IN I, RS IN II] ANTEROSEPTAL MYOCARDIAL INFARCTION , OF INDETERMINATE AGE [40+ ms Q WAVE IN V1-V4] Compared to ECG 02/21/2025 13:34:34 No significant changes Electronically Signed On 02-23-2025 15:35:06 CDT by Pedro Moscoso M.D. [email or web address]
[2025-02-21 19:46] LABS: Lactic Sepsis W/Reflex 1.0 mmol/L (0.5-2.2)
[2025-02-21 19:51] LABS: Troponin 5 6HR 575.9 ng/L (0-15); Troponin 5 6HR Delta 508.9 ng/L (0-12)
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
[2025-02-21] MEDS: nitroglycerin drip 50 MG/250 ML PREMIX IV (21:10)
--- NOTE | 2025-02-21 21:34 | PC.NURSE ---
Med Rec Upon talking with patients about home medications, the patient told me that the new medication Dr Moscoso prescribed the patient. The patient went to the pharmacy to go pickle solution maker the entresto and jardiance was to expensive to pickle solution maker so he has not taken any of those to medications
[2025-02-21 23:41] LABS: INR 0.99 (0.8-1.2); Prothrombin Time 13.80 SECONDS (12.1-14.9)
[2025-02-21 23:52] LABS: Partial Thromboplastin Time 132.5 SECONDS (23.9-36.7)
[2025-02-22] VITALS (16 sets, daily range): BP systolic 103–177; BP diastolic 65–105; PULSE 71–89; RESP 18–31; TEMP 36.6; O2SAT 94–99
[2025-02-22] MEDS: heparin drip 25,000 UNIT/500 ML PREMIX 34 UNIT IV (05:53)
[2025-02-22 06:11] LABS: Hematocrit 43.2 % (37-53); Hemoglobin 14.00 g/dL (11.27-16.99); Mean Corpuscular HGB Conc 32.4 g/dL (30-55); Mean Corpuscular Hemoglobin 28.0 pg (27-33); Mean Corpuscular Volume 86.4 fl (82-101); Nucleated Red Blood Cells % 0 %; Platelet Count 171 10^3/cmm (157-399); Red Blood Count 5.00 10^6/uL (3.85-5.65); White Blood Count 9.51 10^3/uL (3.29-11.43)
[2025-02-22 06:32] LABS: Alanine Aminotransferase 39 U/L (0-41); Albumin Level 3.8 g/dL (3.5-5.2); Alkaline Phosphatase 81 U/L (40-130); Anion Gap 15.7 (5-19); Aspartate Amino Transferase 101 U/L (0-40); Blood Urea Nitrogen 15 mg/dL (8-23); Calcium 9.3 mg/dL (8.5-10.5); Carbon Dioxide 27 mmol/L (22-29); Chloride 100 mmol/L (98-107); Creatinine Clr Calc Pharmacy 133.4879; Globulin 3.1 g/dL (1.3-4.6); Glucose 108 mg/dL (65-115); Magnesium 2.0 mg/dL (1.7-2.3); Osmolality Calculated 289 mOsm/kg (285-295); Potassium 3.7 mmol/L (3.5-5.1); Sodium 139 mmol/L (136-145); Total Protein 6.9 g/dL (6.6-8.7)
[2025-02-22 06:33] LABS: Partial Thromboplastin Time 76.8 SECONDS (23.9-36.7)
[2025-02-22 06:50] LABS: Cholesterol 156 mg/dL (0-200); HDL Cholesterol 42 mg/dL (60-100); Triglycerides 163 mg/dL (0-150)
[2025-02-22 06:55] LABS: Procalcitonin 0.07 ng/mL (0-0.5)
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
--- NOTE | 2025-02-22 10:24 | W.PM.OPSUD ---
Surgery/Procedure H&P Update DATE OF PROCEDURE: February 22, 2025 DATE H&P PERFORMED: 02/22/25 H&P UPDATE INFORMATION: I have reviewed H&P completed within last 30 days, I have examined patient prior to procedure and No changes to prior documentation PREOP DIAGNOSIS: NSTEMI PRIMARY INDICATION FOR PROCEDURE: NSTEMI PLANNED PROCEDURE: Left heart cath with possible percutaneous coronary intervention PATIENT REASSESSED PRIOR TO SEDATION, WITH NO CHANGE NOTED: Yes PHYSICAL EXAM: alert, oriented x 3, clear to auscultation bilaterally and regular rate & rhythm AIRWAY EVAL/ANESTHESIA PLAN: normal airway, ASA III, Local Anesthesia, Risks, benefits & alternatives of sedation and/or procedure discussed and Patient agrees to continue as planned ADDITIONAL INFORMATION: Moderate sedation
--- NOTE | 2025-02-22 11:05 | P.PN_ITS ---
Subjective 2 Subjective: No acute events overnight. Patient states he is feeling better. Denies any further chest pain. Has remained on heparin drip. Vitals/I&O/Wt Last Vital Signs Temp 97.9 F 02/22/25 07:24 Pulse 89 02/22/25 07:24 Resp 20 H 02/22/25 07:24 BP 163/83 02/22/25 07:24 Pulse Ox 96 02/22/25 07:24 O2 Del Method Room Air 02/22/25 07:24 O2 Flow Rate 2 02/21/25 13:31 02/21/25 02/22/25 02/22/25 22:59 06:59 14:59 Intake Total 480.75 / 480.75 527.716 / 1008.466 Balance 480.75 / 480.75 527.716 / 1008.466 Weight last 48 hrs Weight 160.844 kg Weight 154.221 kg Weight 154.221 kg Physical Exam 2 Narrative: EXAM NARRATIVE: No acute distress, AO x3 HEENT: PERRLA, pupils bilaterally equal and reactive Chest: equal good air entry bilaterally, no more fine basal crackles CVS: S1-S2 regular, no murmurs, no tachycardia, no gallops, no rubs Abdomen: Soft, nontender, no organomegaly, bowel sounds present, morbidly obese Neuro: No focal deficits, no facial deformity, AO x3, power 5/5 in all limbs Data 02/22/25 05:58 02/22/25 05:58 A&P Assessment and plan 1. Acute non-ST elevation myocardial infarction (NSTEMI): 2. Essential hypertension: 3. Ischemic cardiomyopathy: 4. Anxiety and depression: 5. Obstructive sleep apnea: 6. Hypoxia: Plan: 60-year-old morbid obese gentleman admitted with chest pain with concerns for non-ST elevation NM: NSTEMI: Positive delta troponins. Appreciate cardiology recommendations. Plan for cardiac angiogram today. Echocardiogram pending. Appreciate A1c, lipid panel. Continue with baby aspirin, metoprolol for now. Ischemic cardiomyopathy: Last known EF of 35% with grade 1 diastolic dysfunction in November 2024. Currently euvolemic. Continue to monitor. For now continue with metoprolol and Entresto. Will uptitrate as with diet and directed medical therapy. Hypertension: Goal blood pressure less than 140/90 mmHg. Continue with home dose of metoprolol, Entresto. Patient has not been taking his Entresto at home because of maya. Discussed [facility] [address] [facility] with him and he is agreeable to restart Entresto. If needed will add amlodipine versus Imdur. Wean nitro drip with systolic blood pressure of less than 140/90 eventually Hypoxia: Most likely in setting of obstructive sleep apnea. Oxygen supplementation keeping saturation over 88%. Most likely patient would need overnight pulse oximetry. N.p.o. for now. Cardiac diet postcardiac catheterization Heparin drip was sufficient for DVT prophy prophylaxis Protonix for PUD prophylaxis PDMP PDMP Reviewed: Not Reviewed Attestations 2 Medical Necessity Statement*: Requires further hospitalization for management of non-ST elevation NM requiring cardiac angiogram, ischemic cardiomyopathy, uncontrolled hypertension Diagnoses Acute non-ST elevation myocardial infarction (NSTEMI) I21.4 Essential hypertension I10 Hypertension type: essential hypertension Ischemic cardiomyopathy I25.5 Anxiety and depression F41.9; F32.A Obstructive sleep apnea G47.33 Hypoxia R09.02
--- NOTE | 2025-02-22 12:20 | PM.TDS ---
Transfer Summary Providers Date of Admission: 02/21/25 18:00 Date of Discharge/Transfer: 02/22/25 Attending Provider at Admission: Evan Gaxiola MD Attending Provider at Transfer: Evan Gaxiola MD Consults: Cardiology: Dr. Gonzalez Transfer Plans: Anticipated date of transfer: 02/22/25. Receiving Facility: [facility] . Receiving Provider: Dr. Amor. Diagnoses at Discharge Discharge Diagnosis 1. Acute non-ST elevation myocardial infarction (NSTEMI): 2. Essential hypertension: 3. Ischemic cardiomyopathy: 4. Anxiety and depression: 5. Obstructive sleep apnea: 6. Hypoxia: Reason for Visit Reason for Visit chest Pain Hospital Course Hospital Course Pancho Pardo is a 60 year old male with PMH CAD s/p stents x 4 in the past, cardiomyopathy EF 35%, with ongoing intermittent chest pain past few months with normal stress test imaging earlier this year. He presented today with c/o right sided chest pain radiating into the right arm which started this afternoon when he was attempting to climb stairs at home. The pain is radiating into his back and right arm. Associated symptoms include nausea and loss of appetite. EKG showed RBBB, no acute ST T wave changes. Trop series 67--> 107--> 575. Cta chest without PE. Patient was being treated for non-ST elevation [place] with heparin drip. He was found to have elevated blood pressures for which his antihypertensives were being adjusted and he was transition to a nitro drip. He underwent cardiac angiogram on 02/22. During angiography he was found to have severe stenosis of the ramus. Plan was to perform PCI. Balloon angioplasty was performed. There was difficulty in advancing the stent and there was a concern for dislodgment of coronary stent of the balloon during the attempt to advance it. We placed intra-aortic balloon pump. Patient briefly went into V-fib cardiac arrest. CPR was done for about 1 minute and patient rhythm was restored with 1 shock. Repeat angiogram was performed that showed flow in all 3 left-sided coronary arteries. Due to complication intraprocedure to maintain his hemodynamics balloon pump was placed and possible transfer to a tertiary center was sought for further management with possible cardiac coronary snare versus possible surgical intervention. He was accepted by Dr. Amor at [facility]. He has been intubated for safe transfer to maintain his airway. 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 Routine Exams 02/22/25 09:51 Ordered Complete Blood Count w/Auto AM LABS Lab 02/23/25 04:00 Ordered Complete Blood Count w/Auto AM LABS Lab 02/24/25 04:00 Ordered Comprehensive Metabolic Panel AM LABS Lab 02/23/25 04:00 Ordered Comprehensive Metabolic Panel AM LABS Lab 02/24/25 04:00 Ordered Magnesium AM LABS Lab 02/23/25 04:00 Ordered Magnesium AM LABS Lab 02/24/25 04:00 Ordered Phosphorus AM LABS Lab 02/23/25 04:00 Ordered Phosphorus AM LABS Lab 02/24/25 04:00 Ordered Platelet Count Q2D Lab 02/23/25 04:00 Ordered Platelet Count Q2D Lab 02/25/25 04:00 Ordered Completed Studies During Hospitalization Category Date Time Status CT ang ches abdpel [id number] Stat Cat Scan 02/21/25 14:[address] cervical spin wo con* [id number] Stat Cat Scan 02/21/25 14:38 Completed XR chest 1V portable [id number] Stat Exams 02/21/25 13:38 Completed Laboratory Last Values WBC 9.51 10^3/uL (3.29-11.43) 02/22/25 05:58 RBC 5.00 10^6/uL (3.85-5.65) 02/22/25 05:58 Hgb 14.00 g/dL (11.27-16.99) 02/22/25 05:58 Hct 43.2 % (37-53) 02/22/25 05:58 MCV 86.4 fl (82-101) 02/22/25 05:58 MCH 28.0 pg (27-33) 02/22/25 05:58 MCHC 32.4 g/dL (30-55) 02/22/25 05:58 RDW 14.9 % (12.1-15.1) 02/22/25 05:58 Plt Count 171 10^3/cmm (157-399) 02/22/25 05:58 MPV 10.2 fL (7.4-10.4) 02/22/25 05:58 Neut % (Auto) 67.1 % 02/22/25 05:58 Lymph % (Auto) 20.3 % 02/22/25 05:58 [place] % (Auto) 9.6 % 02/22/25 05:58 Eos % (Auto) 1.7 % 02/22/25 05:58 Baso % (Auto) 0.6 % 02/22/25 05:58 Neut # (Auto) 6.38 10^3/uL (1.8-7.7) 02/22/25 05:58 Lymph # (Auto) 1.9 10^3/uL (0.8-4.8) 02/22/25 05:58 [place] # (Auto) 0.9 10^3/uL (0.2-0.9) 02/22/25 05:58 Eos # (Auto) 0.2 10^3/uL (0.0-0.8) 02/22/25 05:58 Baso # (Auto) 0.1 10^3/uL (0.0-0.1) 02/22/25 05:58 Nucleated RBC % (auto) 0 % 02/22/25 05:58 Nucleated RBCs # 0.0 /100WBC 02/22/25 05:58 PT 13.80 SECONDS (12.1-14.9) 02/21/25 23:12 INR 0.99 (0.8-1.2) 02/21/25 23:12 APTT 76.8 SECONDS (23.9-36.7) H 02/22/25 05:58 D-Dimer 0.30 ug/mLFEU (0-0.59) 02/21/25 13:47 Sodium 139 mmol/L (136-145) 02/22/25 05:58 Potassium 3.7 mmol/L (3.5-5.1) 02/22/25 05:58 Chloride 100 mmol/L (98-107) 02/22/25 05:58 Carbon Dioxide 27 mmol/L (22-29) 02/22/25 05:58 Anion Gap 15.7 (5-19) 02/22/25 05:58 BUN 15 mg/dL (8-23) 02/22/25 05:58 Creatinine 0.9 mg/dL (0.7-1.2) 02/22/25 05:58 GFR Calculation 85.5 mL/min (90-130) L 02/22/25 05:58 Glucose 108 mg/dL (65-115) 02/22/25 05:58 POC Glucose 131 mg/dL (70-110) H 02/22/25 06:25 Estimat Average Glucose 117 02/21/25 13:47 Hemoglobin A1c 5.7 % (4.0-6.0) 02/21/25 13:47 Calculated Osmolality 289 mOsm/kg (285-295) 02/22/25 05:58 Lactic Acid 1.0 mmol/L (0.5-2.2) 02/21/25 19:06 Calcium 9.3 mg/dL (8.5-10.5) 02/22/25 05:58 Phosphorus 3.2 mg/dL (2.5-4.5) 02/22/25 05:58 Magnesium 2.0 mg/dL (1.7-2.3) 02/22/25 05:58 Iron 69 ug/dL (59-158) 02/21/25 13:47 TIBC 324 mcg/dl 02/21/25 13:47 % Saturation 21.2 % (20-50) 02/21/25 13:47 Unsat Iron Binding 255 ug/dL (112-347) 02/21/25 13:47 Total Bilirubin 1.4 mg/dL (0.15-1.2) H 02/22/25 05:58 AST 101 U/L (0-40) H 02/22/25 05:58 ALT 39 U/L (0-41) 02/22/25 05:58 Alkaline Phosphatase 81 U/L (40-130) 02/22/25 05:58 Troponin T Baseline 67 ng/L (0-15) H 02/21/25 13:47 Troponin T 120 Minute 107.3 ng/L (0-15) H 02/21/25 15:35 Delta Troponin T 40.3 ABS# (0-10) H* 02/21/25 15:35 Troponin T Hi Sens 6Hr 575.9 ng/L (0-15) H 02/21/25 19:06 Troponin T Hi Sens 6Hr Delta 508.9 ng/L (0-12) H* 02/21/25 19:06 NT-Pro-B Natriuret Pep 436 pg/mL (0-125) H 02/21/25 13:47 Total Protein 6.9 g/dL (6.6-8.7) 02/22/25 05:58 Albumin 3.8 g/dL (3.5-5.2) 02/22/25 05:58 Globulin 3.1 g/dL (1.3-4.6) 02/22/25 05:58 Triglycerides 163 mg/dL (0-150) H 02/22/25 05:58 Cholesterol 156 mg/dL (0-200) 02/22/25 05:58 LDL Cholesterol, Calc 81 mg/dL (50-129) 02/22/25 05:58 HDL Cholesterol 42 mg/dL (60-100) L 02/22/25 05:58 LDL/HDL Ratio 1.93 RATIO (0.00-3.22) 02/22/25 05:58 Cholesterol/HDL Ratio 3.71 mg/dL (1.0-5.00) 02/22/25 05:58 Vitamin B12 274 pg/mL (232-1245) 02/21/25 13:47 Folate 6.6 ng/mL (4.5-32.2) 02/21/25 13:47 Procalcitonin 0.07 ng/mL (0-0.5) 02/22/25 05:58 TSH 1.49 uIU/mL (0.27-4.20) 02/21/25 13:47 Radiology Impressions Chest X-Ray 02/21/25 13:38 IMPRESSION: Mild left basilar streaky opacities, likely atelectasis or scarring versus possible airspace disease. Cervical Spine CT 02/21/25 14:38 IMPRESSION: 1. Mild degenerative changes. No fracture or malalignment. 2. The bony spinal canal and neural foramina are patent as visualized. Chest/Abdomen/Pelvis CTA 02/21/25 14:38 IMPRESSION: 1. No acute abdomen and pelvis findings. 2. No evidence of aortic aneurysm, dissection or significant atherosclerotic change. 3. Mild interval increase in left hepatic lobe cyst versus cavernous hemangioma. 4. No CT evidence for pulmonary embolism. 5. No aortic dissection or aneurysm. 6. Mild bilateral pulmonary dependent atelectatic change and stable old granulomatous calcification, right lower lobe. Recent Clincial Data Last Vital Signs Temp 97.9 F 02/22/25 07:24 Pulse 89 02/22/25 07:24 Resp 20 H 02/22/25 07:24 BP 163/83 02/22/25 07:24 Pulse Ox 96 02/22/25 07:24 O2 Del Method Room Air 02/22/25 07:24 O2 Flow Rate 2 02/21/25 13:31 Vital Signs Temp Pulse Resp BP Pulse Ox O2 Del Method 02/22/25 07:24 97.9 F 89 20 H 163/83 96 Room Air 02/22/25 06:30 89 20 H 158/86 02/22/25 06:00 84 02/22/25 05:00 87 25 H 177/105 02/22/25 04:30 80 18 161/81 02/22/25 04:00 71 21 H 154/95 02/22/25 04:00 72 18 161/81 94 Room Air 02/22/25 03:30 84 19 H 151/83 02/22/25 03:00 81 31 H 135/81 02/22/25 02:30 76 21 H 130/74 02/22/25 02:00 76 21 H 147/68 02/22/25 01:30 81 28 H 132/77 02/22/25 01:00 103/73 02/22/25 00:30 82 22 H 135/65 Intake & Output/Weight 02/20/25 02/21/25 02/22/25 02/23/25 06:59 06:59 06:59 06:59 Intake Total 1008.466 / 1008.466 Balance 1008.466 / 1008.466 Weight 160.844 kg Procedures Performed Cardiac angiogram Date of procedure: 02/22/25 Pre-procedure diagnosis: NSTEMI Post-procedure diagnosis: other (Severe ramus arery stenosis. Status post balloon angioplasty. Stent dislodged and attempts to advance it to the stenosis site.) Procedure: Left main artery is patent. LAD has mild to moderate luminal irregularities. RCA has mid vessel 50% stenosis. Circumflex artery is patent. Ramus artery is the culprit for NSTEMI. Has severe stenosis. Plan was to perform PCI of it. Balloon angioplasty was performed. Had difficulty with advancing the stent. Guideliner was used to attempt crossing over the stent. During attempts to advance it, stent came off the balloon. It was extending from mid to distal left main into ramus artery. This is across the ostia of the LAD and left circumflex artery. Patient had occlusion of the ramus artery briefly. He became unstable and had significant chest discomfort. No ST-T wave changes were seen. Anesthesia team was called. Eventually got intubated. We were able to advance a wire through the stent and ballooned the distal ramus artery with 1.5 mm balloon. This restored the flow in the ramus artery. We did not have coronary snares available. Attempts at snaring it with coronary wires were unsuccessful. I discussed with CT surgeon at [facility], Dr Amor who has accepted patient for heart team discussion with the interventional team likely snaring the stent. We placed intra-aortic balloon pump. Patient briefly went into V-fib cardiac arrest. CPR was done for about 1 minute and patient rhythm was restored with 1 shock. Repeat angiogram was performed that showed flow in all 3 left-sided coronary arteries. Unfortunately because of patient's weight and size, we had difficulty with air transport. Eventually [facility] has accepted him for transfer. Patient's family did not want ground transport which was a shared decision as patient could become unstable during transport. No more VT/V-fib episodes. Patient stated off of pressor support. Rhythm is stable. Currently on amiodarone and lidocaine gtt. We are maintaining ACT over 250 s. Performing Provider: Carlos Gonzalez Estimated blood loss (mL): 15 Complications: Dislodgment of coronary stent off of balloon during attempt to advance it. Patient to be transferred to [facility] for retrieval of stent via snaring vs surgery. Condition: critical Disposition: other (Transferring to [facility]) Vitals Last Vital Signs Temp 97.9 F 02/22/25 07:24 Pulse 89 02/22/25 07:24 Resp 20 H 02/22/25 07:24 BP 163/83 02/22/25 07:24 Pulse Ox 96 02/22/25 07:24 O2 Del Method Room Air 02/22/25 07:24 O2 Flow Rate 2 02/21/25 13:31 TS Medications Medications Acetaminophen (Acetaminophen 325 Mg Tablet) 650 mg PO Q6H PRN PRN Reason: Mild/Mod Pain Or Temp >/= 101 Aspirin (Aspirin 81 Mg Ec Tablet) 81 mg PO DAILY [facility] Docusate Sodium (Docusate Sodium 100 Mg Capsule) 100 mg PO BID [facility] Last Admin: 02/22/25 09:06 Dose: Not Given Glucagon (Glucagon 1 Mg/Ml Kit 1 Ml) 1 mg IM ONCE PRN; Protocol PRN Reason: Adult Acute Hypoglycemia Nursing Prot. Heparin Sodium (Porcine) (Heparin 5,000 Unit/Ml Inj 1 Ml) 0 unit IVP PRN PRN; Protocol PRN Reason: Heparin Weight Based Protocol -Subsequent Bolus Heparin Sodium/Sodium Chloride (Heparin Drip) 25,000 unit in 500 mls @ 0 mls/hr IV CONT EFE; Protocol Last Titration: 02/22/25 06:40 Dose: 10.05 unit/kg/hr, 31 mls/hr Dextrose (D5w) 500 mls @ 0 mls/hr IV ONCE PRN; Protocol PRN Reason: Adult Acute Hypoglycemia Prot Dextrose (D10w) 125 mls @ 750 mls/hr IV PRN PRN; Protocol PRN Reason: Adult Acute Hypoglycemia Nursing Protocol Dextrose (D10w) 250 mls @ 1,000 mls/hr IV PRN PRN; Protocol PRN Reason: Adult Acute Hypoglycemia Nursing Protocol Nitroglycerin/Dextrose (Nitroglycerin Drip) 50 mg in 250 mls @ 0 mls/hr IV .Q0M [facility]; Protocol Last Titration: 02/22/25 00:10 Dose: 10 mcg/min, 3 mls/hr Insulin Human Lispro (Insulin Lispro 100 Unit/1 Ml) 0 unit SUBCUT WM&BEDTIME [facility]; Protocol Last Admin: 02/22/25 08:13 Dose: Not Given Lactulose (Lactulose Oral Liq 20 Gm/30 Ml Udc) 10 gm PO DAILY PRN; Protocol PRN Reason: Constipation (see protocol) Magnesium Hydroxide (Magnesium Hydroxide 30 Ml Udc) 30 ml PO DAILY PRN; Protocol PRN Reason: Constipation (see protocol) Metoprolol Tartrate (Metoprolol Tartrate 50 Mg Tablet) 50 mg PO BID [facility] Last Admin: 02/22/25 09:06 Dose: 50 mg Morphine Sulfate (Morphine 4 Mg/Ml Sdv 1 Ml) 2 mg IVP Q4H PRN PRN Reason: SEVERE PAIN Ondansetron HCl (Ondansetron 2 Mg/Ml Sdv 2 Ml) 4 mg IVP Q6H PRN PRN Reason: vomiting, or N/V if npo Pantoprazole Sodium (Pantoprazole Dr 40 Mg Tablet) 40 mg PO DAILY [facility] Last Admin: 02/22/25 09:06 Dose: Not Given Sacubitril/Valsartan (Sacubitril/Valsartan 24-26 Mg Tablet) 2 each PO BID [facility] Discontinued Medications Aspirin (Aspirin 325 Mg Tablet) 325 mg PO ONCE ONE Stop: 02/21/25 16:42 Last Admin: 02/21/25 17:25 Dose: 325 mg Aspirin (Aspirin 81 Mg Ec Tablet) 81 mg PO ONCE ONE Stop: 02/22/25 10:00 Aspirin (Aspirin 81 Mg Ec Tablet) Confirm Administered Dose 81 mg .ROUTE .STK-MED ONE Stop: 02/22/25 10:04 Aspirin (Aspirin 81 Mg Ec Tablet) Confirm Administered Dose 81 mg .ROUTE .STK-MED ONE Stop: 02/22/25 10:05 Diphenhydramine HCl (Diphenhydramine 50 Mg/Ml Sdv 1ml) Confirm Administered Dose 50 mg .ROUTE .STK-MED ONE Stop: 02/22/25 09:51 Diphenhydramine HCl (Diphenhydramine 50 Mg Capsule) 50 mg PO ONCE ONE Stop: 02/22/25 10:01 Diphenhydramine HCl (Diphenhydramine 50 Mg Capsule) Confirm Administered Dose 50 mg .ROUTE .STK-MED ONE Stop: 02/22/25 10:05 Fentanyl (Fentanyl 50 Mcg/Ml Inj 2ml) Confirm Administered Dose 100 mcg .ROUTE .STK-MED ONE Stop: 02/22/25 09:51 Heparin Sodium (Porcine) (Heparin 5,000 Unit/Ml Inj 1 Ml) 0 unit IVP ONCE ONE; Protocol Stop: 02/21/25 16:39 Last Admin: 02/21/25 17:22 Dose: 7,000 unit Heparin Sodium (Porcine) (Heparin 5,000 Unit/Ml Inj 1 Ml) Confirm Administered Dose 10,000 unit .ROUTE .STK-MED ONE Stop: 02/22/25 09:52 Heparin Sodium (Porcine) (Heparin 5,000 Unit/Ml Inj 1 Ml) Confirm Administered Dose 5,000 unit .ROUTE .[facility] ONE Stop: 02/22/25 10:50 Heparin Sodium (Porcine) (Heparin 5,000 Unit/Ml Inj 1 Ml) Confirm Administered Dose 5,000 unit .ROUTE .[facility] ONE Stop: 02/22/25 10:54 Lidocaine HCl (Xylocaine) Confirm Administered Dose 20 mls @ as directed .ROUTE .[facility] ONE Stop: 02/22/25 09:52 Sodium Chloride (Sodium Chloride 0.9%) Confirm Administered Dose 1,000 mls @ as directed .ROUTE .[facility] ONE Stop: 02/22/25 09:52 Nitroglycerin/Dextrose (Nitroglycerin Drip) Confirm Administered Dose 50 mg in 250 mls @ as directed .ROUTE .[facility] ONE Stop: 02/22/25 11:32 Iohexol (Iohexol 350 Mg/Ml 500 Ml Btl (Per Ml)) 0 ml IV ONCE ONE Stop: 02/21/25 15:23 Last Admin: 02/21/25 15:22 Dose: 100 ml Iohexol (Iohexol 350 Mg/Ml 500 Ml Btl (Per Ml)) 0 ml IV ONCE ONE Stop: 02/21/25 15:38 Last Admin: 02/21/25 15:38 Dose: 25 ml Midazolam HCl (Midazolam 1 Mg/Ml Inj 2 Ml) Confirm Administered Dose 2 mg .ROUTE .[facility] ONE Stop: 02/22/25 09:52 Midazolam HCl (Midazolam 1 Mg/Ml Inj 2 Ml) Confirm Administered D[facility] 2 [facility] Stop: 02/22/25 10:33 Midazolam HCl (Midazolam 1 Mg/Ml Inj 2 Ml) Confirm Administered Dose 2 mg .ROUTE .[facility] ONE Stop: 02/22/25 11:30 Nitroglycerin (Nitroglycerin 5 Mg/Ml Sdv 10 Ml) Confirm Administered Dose 50 mg .ROUTE .[facility] ONE Stop: 02/22/25 09:52 Allergies carvedilol Allergy (Severe, Verified 01/29/25 15:42) Unknown Neck/Jaw/LUE pain, presyncope, weakness, fatigue codeine Allergy (Unknown, Verified 01/29/25 15:42) unknown ibuprofen Allergy (Unknown, Verified 01/29/25 15:42) unknown Bvpypxt-UVA-WuM Reductase Inhibitor (Lmcegyo-Ulc-Kho Reductase Inhibitor) Allergy (Unknown, Verified 01/29/25 15:42) unknown ezetimibe (From Zetia) Allergy (Verified 01/29/25 15:42) rash,itching spironolactone Adverse Reaction (Verified 01/29/25 16:24) Unknown gynecomastia Home Medications aspirin 81 mg tablet,delayed release (Adult Low Dose Aspirin) 81 mg PO DAILY 01/15/20 [History Confirmed 02/21/25] PTT supinator brace #1 ea 04/14/21 [Rx Confirmed 02/21/25] cholecalciferol (vitamin D3) 25 mcg (1,000 unit) tablet (Vitamin D3) 25 mcg PO DAILY 05/19/21 [History Confirmed 02/21/25] red yeast rice 600 mg capsule 1,200 mg PO DAILY 03/31/22 [History Confirmed 02/21/25] furosemide 20 mg tablet (Lasix) 20 mg PO DAILY PRN edema #90 tabs 01/31/24 [Rx Confirmed 02/21/25] potassium chloride 8 mEq tablet,extended release 8 meq PO DAILY PRN use with lasix #90 tabs 01/31/24 [Rx Confirmed 02/21/25] nitroglycerin 0.4 mg sublingual tablet (Nitrostat) 0.4 mg sublingual Q5M PRN Heart related chest pain #20 tabs 11/06/24 [Rx Confirmed 02/21/25] empagliflozin 10 mg tablet (Jardiance) 10 mg PO DAILY 30 days #30 tabs 01/29/25 [Rx Confirmed 02/21/25] sacubitril 49 mg-valsartan 51 mg tablet (Entresto) 1 tab PO BID #60 tabs 01/29/25 [Rx Confirmed 02/21/25] amlodipine 2.5 mg tablet 2.5 mg PO DAILY 02/21/25 [History Confirmed 02/21/25] metoprolol tartrate 50 mg tablet 50 mg PO BID 02/21/25 [History Confirmed 02/21/25] Discharge Plan Discharge Patient Disposition: Home Condition: Stable Prescriptions: No Action aspirin [Adult Low Dose Aspirin] 81 mg tablet,delayed release (DR/EC) 81 mg PO DAILY red yeast rice 600 mg capsule 1,200 mg PO DAILY Rx Instructions: give with meal/snack (DME) PTT supinator brace See Rx Instructions .Route .MEDSUPPLY Qty: 1 0RF Rx Instructions: As directed cholecalciferol (vitamin D3) [Vitamin D3] 25 mcg (1,000 unit) tablet 25 mcg PO DAILY nitroglycerin [Nitrostat] 0.4 mg tablet, sublingual 0.4 mg SUBLINGUAL Q5M PRN (Reason: Heart related chest pain) Qty: 20 3RF Rx Instructions: do not exceed 3 doses per episode Jardiance 10 mg tablet 10 mg PO DAILY 30 Days Qty: 30 5RF Entresto 49-51 mg tablet 1 tab PO BID Qty: 60 1RF furosemide [Lasix] 20 mg tablet 20 mg PO DAILY PRN (Reason: edema) Qty: 90 3RF potassium chloride 8 mEq tablet extended release 8 meq PO DAILY PRN (Reason: use with lasix) Qty: 90 3RF metoprolol tartrate 50 mg tablet 50 mg PO BID amlodipine 2.5 mg tablet 2.5 mg PO DAILY Discharge Order = DC NOW: Transfer Out of Facility (Order); Ordered 02/22/25 Ordered By: Evan Gaxiola Referrals: Agata Sy FNP [Referring, Nurse Practitioner] - 03/01/25 10:00 am Referral Note: This is to establish with a primary care provider. Since you have never been to this clinic you will need to arrive 15 mins ahead of time to complete paperwork. Patient Instructions: Opioid Safety, Patient Portal & Skinny Instructions Transfer Attestations Time Spent in Transfer Care: critical care time (Managing airway, balloon pump, urgent transfer) Critical Care Time (min): 65 Specific Discharge Activities: educating patient, discussing with pcp/other providers, discussing with caseworker/social workers/dc planners, documenting/other paperwork and evaluating patient/reviewing data Quality Metrics Clinical Quality Measures [ No reported AMI, CVA or VTE this stay] Coding Level of Care Code Critical Care >/= 30 minutes Critical care time (in minutes): 65 The high probability of a clinically significant, sudden or life threatening deterioration, as referenced in this documentation, required my full and direct attention, intervention and personal management. The critical care time shown is in addition to time spent performing any reported separately billable procedures and includes the following: [x] Data and vital sign review and interpretation [x] Patient assessment, examination and intervention [x] Medication orders and management [x] Patient/Family updates as able [x] Care Coordination and Documentation. Other Coding Information Prolonged care (total time indicated above or notated here) Diagnoses Acute non-ST elevation myocardial infarction (NSTEMI) I21.4 Essential hypertension I10 Hypertension type: essential hypertension Ischemic cardiomyopathy I25.5 Anxiety and depression F41.9; F32.A Obstructive sleep apnea G47.33 Hypoxia R09.02
--- NOTE | 2025-02-22 14:34 | P.PCN_ITS ---
Procedure Note: Date of procedure: 02/22/25 Pre-procedure diagnosis: NSTEMI Post-procedure diagnosis: other (Severe ramus arery stenosis. Status post balloon angioplasty. Stent dislodged and attempts to advance it to the stenosis site.) Procedure: Left main artery is patent. LAD has mild to moderate luminal irregularities. RCA has mid vessel 50% stenosis. Circumflex artery is patent. Ramus artery is the culprit for NSTEMI. Has prior stent with area of underexpansion in severe ISR. Right at distal edge of the stent there is another severe stenosis. Plan was to perform PCI of it. Balloon angioplasty was performed. Had difficulty with advancing the stent. Guideliner was used to attempt crossing over the stent. During attempts to advance it, stent came off the balloon. It was extending from mid to distal left main into ramus artery. This is across the ostia of the LAD and left circumflex artery. Patient had occlusion of the ramus artery briefly. He became unstable and had significant chest discomfort. No ST-T wave changes were seen. Anesthesia team was called. Eventually got intubated. We were able to advance a wire through the stent and ballooned the distal ramus artery with 1.5 mm balloon. This restored the flow in the ramus artery. We did not have coronary snares available. Attempts at snaring it with coronary wires were unsuccessful. I discussed with CT surgeon at [facility], Dr Amor who has accepted patient for heart team discussion with the interventional team likely snaring the stent. We placed intra-aortic balloon pump. Patient briefly went into V-fib cardiac arrest. CPR was done for about 1 minute and patient rhythm was restored with 1 shock. Repeat angiogram was performed that showed flow in all 3 left-sided coronary arteries. Unfortunately because of patient's weight and size, we had difficulty with air transport. Eventually [facility] has accepted him for transfer. Patient's family did not want ground transport which was a shared decision as patient could become unstable during transport. No more VT/V-fib episodes. Patient stated off of pressor support. Rhythm is stable. Currently on amiodarone and lidocaine gtt. We are maintaining ACT over 250 s. Since the brief Vfib episode, no more rhythm changes. Performing Provider: Carlos Gonzalez Estimated blood loss (mL): 15 Complications: Dislodgment of coronary stent off of balloon during attempt to advance it. Patient to be transferred to [facility] in [place] for retrieval of stent via snaring vs surgery. Condition: critical Disposition: other (Transferring to [facility]) Coding Level of Care Code Acute Code for John García
--- NOTE | 2025-02-22 15:14 | PM.CCN ---
Critical Care Event Note Consulted by cardiology for emergent placement of triple line to manage access. Initially evaluated patient no easy access to the right IJ under ultrasound guidance for central line Critical Care Time Code activated: No Critical Care Time (min): 0 Procedures Central Line Placement^ Right IJ: Patient placed on monitor/pulse ox: Yes prep: mask Central line prep: Chlorhexidine scrub Local anesthesia used: lidocaine 1% Amount of anesthesia used (ml): 4 Ultrasound used for placement: Yes Central line lumen inserted: triple Post procedure: sutured in place, good blood return, all ports aspirated, flushed, capped and sterile dressing applied Post procedure x-ray: tip of catheter in good position Patient tolerated procedure: well Complications: none Additional comments: Initial line placed in the [employer] Systems [employer] Assessment. Under fluoroscopy tip appears to be in the right atrium was withdrawn 4 cm repeat fluoroscopy shot shows it in good position in the superior vena cava. Sutured in with you secondary attachment device Coding Level of Care Code Acute Code for Chg Fwd
[2025-02-22 16:07] LABS: ABG PCO2 33.8 mmHg (35-45); ABG PH Result 7.43 (7.35-7.45); Alveolar-Arterial Oxygen Gradi 50.1 mmHg (5-10); Arterial Blood Gas Hematocrit 37.5 % (42-52); Blood Gas Operator Identificat CAK; Blood Gas Sample Site ALINE; Blood Gas Sample Type Arterial; Blood Gas Tidal Volume 0.50; Carboxyhemoglobin 0.7 %THgb (0.4-20.1); Glucose Level-ABG 90.0 mg/dL (70-115); HCO3 ABG 22.5 mmol/L (22-26); Ionized Calcium Level - ABG 1.0 mmol/L (1.1-1.4); Methemoglobin 1.7 % (0.4-1.5); Oxygen Saturation ABG 99.0; PEEP 8.0 cmH20; PO2 ABG 137.0 mmHg (80.0-100.0); PO2 FiO2 Ratio Arterial Blood 171; Potassium Level - ABG 2.9 mmol/L (3.5-5.0); Sodium Level - ABG 140.0 mmol/L (131-143)
--- NOTE | 2025-02-22 17:57 | PC.NURSE ---
Nursing staff in C[facility] is asked to discharge patient. 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 Amor via the helicopter at 1755.
== END 2025-02-22 18:01 | disposition short-term general hospital (02) | DRG 270 ==
LOC: ER 17:20 → CSU 18:01
PROVIDERS: Internal Medicine; Admitting Provider Student in an Organized Health Care Education/Training Program; Emergency Provider Student in an Organized Health Care Education/Training Program; Visit Provider Student in an Organized Health Care Education/Training Program
PROC: 5A02210 Assistance with Cardiac Output using Balloon Pump, Continuous (ICD-10-PCS; principal; 2025-02-22 10:00)
PROC: 5A02210 Assistance with Cardiac Output using Balloon Pump, Continuous (ICD-10-PCS; 2025-02-22 10:00)
DX: I21.4 Non-ST elevation (NSTEMI) myocardial infarction (principal); I46.9 Cardiac arrest, cause unspecified; I49.01 Ventricular fibrillation; T82.528A Displacement of other cardiac and vascular devices and implants, initial encounter; I50.20 Unspecified systolic (congestive) heart failure; Z68.42 Body mass index [BMI] 45.0-49.9, adult; I25.10 Atherosclerotic heart disease of native coronary artery without angina pectoris; Z95.5 Presence of coronary angioplasty implant and graft; Y71.8 Miscellaneous cardiovascular devices associated with adverse incidents, not elsewhere classified; F41.9 Anxiety disorder, unspecified; F32.A Depression, unspecified; I11.0 Hypertensive heart disease with heart failure; I45.10 Unspecified right bundle-branch block; R09.02 Hypoxemia; G47.33 Obstructive sleep apnea (adult) (pediatric); Z87.891 Personal history of nicotine dependence; E78.5 Hyperlipidemia, unspecified; E66.01 Morbid (severe) obesity due to excess calories; E11.9 Type 2 diabetes mellitus without complications; I25.5 Ischemic cardiomyopathy; Z79.84 Long term (current) use of oral hypoglycemic drugs; Z79.82 Long term (current) use of aspirin
CPT/HCPCS: 33967; 36415; 36416; 71045; 71275; 72125; 74174; 80051; 80053; 80061; 82330; 82607; 82746; 82805; 82962; 83036; 83540; 83550; 83605; 83735; 83880; 84100; 84145; 84443; 84484; 85025; 85347; 85378; 85610; 85730; 92920; 92950; 93005; 93454; 94002; 94664; 94799; 96365; 96366; 96374; 96375; 99152; 99153; 99285; C1725; C1769; C1773; C1874; C1887; C1894; J0283; J1200; J1644; J2003; J2250; J2704; J3010; J3490; J7030; J9999; Q0163; Q9967

== ENCOUNTER → 2025-04-24 08:47 | Outpatient (BNVA) | payer MEDICARE, SELFPAY | DX: Z12.5 Encounter for screening for malignant neoplasm of prostate (principal); R35.1 Nocturia; I25.10 Atherosclerotic heart disease of native coronary artery without angina pectoris; I10 Essential (primary) hypertension | CPT/HCPCS: 80053; 80061; 83880; 85025; G0103 ==

== ENCOUNTER → 2025-05-03 11:23 | Outpatient (BNVA) | payer MEDICARE, SELFPAY | DX: Z13.1 Encounter for screening for diabetes mellitus (principal); R63.1 Polydipsia; I25.10 Atherosclerotic heart disease of native coronary artery without angina pectoris; E87.6 Hypokalemia; I50.20 Unspecified systolic (congestive) heart failure | CPT/HCPCS: 80048; 83036; 83880; 84132; 85025 ==

== ENCOUNTER 2025-05-07 06:53 | Outpatient (CLI) | payer MEDICARE, SELFPAY ==
--- NOTE | 2025-05-07 07:00 | USR_ITS ---
PROCEDURE INFORMATION: Exam: US Duplex Bilateral Lower Extremity Arteries Exam date and time: 05/07/2025 7:06 AM Age: 60 years old Clinical indication: Swelling (edema) of limb; Lower extremity, bilateral; Additional info: Bilateral lower swelling TECHNIQUE: Imaging protocol: Real-time ultrasound scan of the arteries of the bilateral lower extremities with 2-D solano scale, color Doppler flow and spectral waveform analysis. Images documented and saved. COMPARISON: MR ankle LT wo con* [id number] 02/11/2021 8:12 AM FINDINGS: Right iliac artery: Right common iliac artery: No occlusion or significant stenosis. Normal waveform. Right common femoral artery: No occlusion or significant stenosis. Normal waveform. Right superficial femoral artery: No occlusion or significant stenosis. Normal waveform. Right popliteal artery: No occlusion or significant stenosis. Normal waveform. Right calf/foot arteries: No occlusion or significant stenosis in the visualized arteries. Normal waveforms. Dorsalis pedis artery is patent. All right lower extremity arteries have a peak systolic velocity of less than 150 cm/s. Left iliac artery: Left common iliac artery: No occlusion or significant stenosis. Normal waveform. Left common femoral artery: No occlusion or significant stenosis. Normal waveform. Left superficial femoral artery: No occlusion or significant stenosis. Normal waveform. Left popliteal artery: No occlusion or significant stenosis. Normal waveform. Left calf/foot arteries: No occlusion or significant stenosis in the visualized arteries. Normal waveforms. Dorsalis pedis artery is patent. All left lower extremity arteries have a peak systolic velocity of less than 150 cm/s. Ankle-brachial indexes are within normal limits. Right DOMINGO: 1.32. Left DOMINGO 1.24. Some subcutaneous edema seen in the calves and ankles. US/CV arterial duplex [facility] [id number] IMPRESSION: 1. Bilateral lower extremity arteries are patent without significant stenosis or occlusion demonstrated sonographically. 2. Some subcutaneous edema in the calves and ankles.
== END 2025-05-07 06:54 | disposition home or self-care (01) ==
LOC: RAD 06:58
DX: I25.10 Atherosclerotic heart disease of native coronary artery without angina pectoris (principal); R60.0 Localized edema
CPT/HCPCS: 93925

== ENCOUNTER 2025-05-23 21:58 | Emergency (ER) | payer MEDICARE, SELFPAY ==
[2025-05-23 22:03] VITALS: BP 154/90; PULSE 115; RESP 20; TEMP 37.1; O2SAT 94
[2025-05-23 22:17] VITALS: BP 148/65; PULSE 114; RESP 20; O2SAT 93
--- NOTE | 2025-05-23 22:17 | ECG_ITS ---
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1965 Requested By: Mathew Rose Order Number: [id number] Reading MD: MARIIA PALOMARES Measurements Intervals [place] Rate: 115 P: 15 ND: 133 QRS: -78 QRSD: 169 T: 90 QT: 328 QTc: 454 Interpretive Statements SINUS TACHYCARDIA RIGHT BUNDLE BRANCH BLOCK [120+ ms QRS DURATION, UPRIGHT V1, 40+ ms S IN I/aVL/V4/V5/V6] LEFT ANTERIOR FASCICULAR BLOCK [QRS AXIS <= -45, QR IN I, RS IN II] ANTEROSEPTAL MYOCARDIAL INFARCTION , OF INDETERMINATE AGE [40+ ms Q WAVE IN V1-V4] Compared to ECG 02/21/2025 20:40:33 Sinus rhythm no longer present Myocardial infarct finding still present Electronically Signed On 05-24-2025 16:49:34 CDT by MARIIA PALOMARES [email or web address] [id number]
--- NOTE | 2025-05-23 22:17 | XRR_ITS ---
PROCEDURE INFORMATION: Exam: XR Chest Exam date and time: 05/23/2025 10:28 PM Age: 60 years old Clinical indication: Pain; Chest pressure; Prior surgery; Surgery date: 1-6 months; Surgery type: Cabg; Additional info: Chest pain, vomiting, S/P cabg February TECHNIQUE: Imaging protocol: Radiologic exam of the chest. Views: 1 view. COMPARISON: CR XR chest 1V [id number] 03/29/2025 12:37 AM FINDINGS: Lungs: Unremarkable. No consolidation. Pleural spaces: Unremarkable. No pleural effusion. No pneumothorax. Heart/Mediastinum: The heart is enlarged. Bones/joints: Postoperative changes from median sternotomy are noted. Sternotomy wires are well aligned. XR/XR chest 1V portable [id number] IMPRESSION: 1. Cardiomegaly. 2. No acute pulmonary process.
--- NOTE | 2025-05-23 22:20 | CTR_ITS ---
PROCEDURE INFORMATION: Exam: CTA Chest With Contrast Exam date and time: 05/23/2025 11:19 PM Age: 60 years old Clinical indication: Abdominal pain; Angina pectoris; Prior surgery; Surgery date: 1-6 months; Surgery type: Cabg; Additional info: S/P cabg p/w chest pain, SOB, vomiting, combining chest pe with abd pelv order for one dose of contrast TECHNIQUE: Imaging protocol: Computed tomographic angiography of the chest with contrast. Exam focused on the arteries. 3D rendering (Not supervised by radiologist): MIP and/or 3D reconstructed images were created by the technologist. Radiation optimization: All CT scans at this facility use at least one of these dose optimization techniques: automated exposure control; mA and/or kV adjustment per patient size (includes targeted exams where dose is matched to clinical indication); or iterative reconstruction. Contrast material: OMNI 350; Contrast volume: 100 ml; Contrast route: INTRAVENOUS (IV); COMPARISON: CT chest abdpel w/*[id number] 03/05/2025 11:25 AM RADIATION DOSE METRICS: Total DLP (mGy-cm): 1972.38 FINDINGS: Pulmonary arteries: No acute pulmonary embolus is identified. Aorta: Mild atherosclerotic changes of the thoracic aorta and its major branch vessels is noted. Lungs: Calcified granulomas are seen scattered throughout the lung, which can be seen setting prior granulomatous disease. No confluent consolidation. Subtle diffuse hazy ground-glass opacities throughout both lungs. Pleural spaces: Trace right pleural effusion is present with associated atelectasis. A small left pleural effusion with associated atelectasis is present. Heart: The heart is enlarged. A small pericardial effusion is present. Coronary arteries: Postoperative changes from CABG are noted. Lymph nodes: Unremarkable. No enlarged lymph nodes. Bones/joints: Postoperative changes from median sternotomy are noted. Sternotomy wires are well aligned. Degenerative joint and disc disease is seen in the imaged spine. Soft tissues: Unremarkable. PROCEDURE INFORMATION: Exam: CT Abdomen And Pelvis With Contrast Exam date and time: 05/23/2025 11:19 PM Age: 60 years old Clinical indication: Abdominal pain; Angina pectoris; Prior surgery; Surgery date: 1-6 months; Surgery type: Cabg; Additional info: S/P cabg p/w chest pain, SOB, vomiting, combining chest pe with abd pelv order for one dose of contrast TECHNIQUE: Imaging protocol: Computed tomography of the abdomen and pelvis with contrast. Radiation optimization: All CT scans at this facility use at least one of these dose optimization techniques: automated exposure control; mA and/or kV adjustment per patient size (includes targeted exams where dose is matched to clinical indication); or iterative reconstruction. Contrast material: OMNI 350; Contrast volume: 100 ml; Contrast route: INTRAVENOUS (IV); COMPARISON: CT chest abdpel w/*[id number] 03/05/2025 11:25 AM RADIATION DOSE METRICS: Total DLP (mGy-cm): 1972.38 FINDINGS: Liver: Scattered simple cysts are seen throughout the liver. The liver is otherwise within normal limits. Gallbladder and biliary ducts: The gallbladder is surgically absent. No intra or extrahepatic bile duct dilatation is noted. Pancreas: Normal. No ductal dilation. Spleen: A splenule is present. The spleen is otherwise normal. Adrenal glands: Normal. No mass. Kidneys and ureters: Normal. No hydronephrosis. Stomach and bowel: The large and small bowel are unremarkable. Bowel is normal in course and caliber without evidence of wall thickening or obstruction. Appendix: Postoperative changes from appendectomy. Intraperitoneal space: Unremarkable. No free air. No significant fluid collection. Vasculature: Mild atherosclerosis of the aorta and its major branching vessels is noted. Lymph nodes: Unremarkable. No enlarged lymph nodes. Urinary bladder: Unremarkable as visualized. Reproductive: The prostate is enlarged. Bones/joints: Degenerative joint and disc disease is seen in the imaged spine. Soft tissues: Resolution of previously noted left groin hematoma. CT/CT angio chest w abd pel w con IMPRESSION: 1. No acute pulmonary embolus or evidence of acute right heart strain. 2. Cardiomegaly. 3. Small pericardial effusion. 4. Trace right pleural effusion. 5. Small left pleural effusion. 6. Findings which could be suggestive of very mild vascular congestion. IMPRESSION: 1. No acute intra-abdominal process to explain the patient's symptoms. 2. Prostatomegaly. Correlate with PSA. 3. Resolution of previously noted left groin hematoma.
[2025-05-23 22:33] VITALS: RESP 20
[2025-05-23] MEDS: pantoprazole 40 mg SDV IVP (22:33)
[2025-05-23] MEDS: ondansetron 2 mg/ML SDV 2 mL 4 MG IVP (22:33)
[2025-05-23] MEDS: morphine 4 mg/mL SDV 1 mL IVP (22:33)
[2025-05-23 22:39] LABS: Hematocrit 32.4 % (37-53); Hemoglobin 9.90 g/dL (11.27-16.99); Mean Corpuscular HGB Conc 30.6 g/dL (30-55); Mean Corpuscular Hemoglobin 25.5 pg (27-33); Mean Corpuscular Volume 83.5 fl (82-101); Nucleated Red Blood Cells % 0 %; Platelet Count 291 10^3/cmm (157-399); Red Blood Count 3.88 10^6/uL (3.85-5.65); White Blood Count 11.36 10^3/uL (3.29-11.43)
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
[2025-05-23 22:52] LABS: INR 1.00 (0.8-1.2); Prothrombin Time 13.90 SECONDS (12.1-14.9)
[2025-05-23 22:53] LABS: Partial Thromboplastin Time 29.9 SECONDS (23.9-36.7)
[2025-05-23 22:57] VITALS: BP 119/68; PULSE 101; RESP 22; O2SAT 94
[2025-05-23 23:00] LABS: Troponin(5th) Baseline 39 ng/L (0-15)
[2025-05-23 23:10] LABS: Alanine Aminotransferase 16 U/L (0-41); Albumin Level 4.1 g/dL (3.5-5.2); Alkaline Phosphatase 124 U/L (40-130); Anion Gap 18.5 (5-19); Aspartate Amino Transferase 13 U/L (0-40); Blood Urea Nitrogen 15 mg/dL (8-23); Calcium 9.3 mg/dL (8.5-10.5); Carbon Dioxide 26 mmol/L (22-29); Chloride 100 mmol/L (98-107); Creatinine Clr Calc Pharmacy 82.6407; Globulin 2.9 g/dL (1.3-4.6); Glucose 111 mg/dL (65-115); Lipase 35 U/L (13-60); NT Pro B Type Natriuretic Pept 3409 pg/mL (0-125); Osmolality Calculated 294 mOsm/kg (285-295); Potassium 3.5 mmol/L (3.5-5.1); Sodium 141 mmol/L (136-145); Total Protein 7.0 g/dL (6.6-8.7)
[2025-05-23] MEDS: iohexol 350 mg/mL 500 mL Btl (per mL) IV (23:52)
[2025-05-24] VITALS (10 sets, daily range): BP systolic 126–149; BP diastolic 67–82; PULSE 97–105; RESP 18–20; O2SAT 93–99
--- NOTE | 2025-05-24 00:17 | ECG_ITS ---
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: : 1965 Requested By: Mathew Rose Order Number: [id number] Reading MD: MARIIA PALOMARES Measurements Intervals [place] Rate: 102 P: 0 [place]: 0 QRS: -74 QRSD: 170 T: 103 QT: 430 QTc: 560 Interpretive Statements Sinus RHYTHM RIGHT BUNDLE BRANCH BLOCK [120+ ms QRS DURATION, UPRIGHT V1, 40+ ms S IN I/aVL/V4/V5/V6] LEFT ANTERIOR FASCICULAR BLOCK [QRS AXIS <= -45, QR IN I, RS IN II] ANTEROSEPTAL MYOCARDIAL INFARCTION , OF INDETERMINATE AGE [40+ ms Q WAVE IN V1-V4] MODERATE T-WAVE ABNORMALITY, CONSIDER LATERAL ISCHEMIA [-0.1+ mV T-WAVE IN I/aVL/V5/V6] No change since previous ECG performed on ____02/21/2025 Electronically Signed On 05-24-2025 16:58:17 CDT by MARIIA PALOMARES [email or web address]
[2025-05-24 01:35] LABS: Troponin 5 2HR 41.91 ng/L (0-15); Troponin 5 2HR Delta 2.91 ABS# (0-10)
[2025-05-24] MEDS: morphine 4 mg/mL SDV 1 mL IVP (01:47)
== END 2025-05-24 02:21 | disposition home or self-care (01) ==
PROVIDERS: Emergency Provider Student in an Organized Health Care Education/Training Program
DX: R07.9 Chest pain, unspecified (principal); Z79.82 Long term (current) use of aspirin; Z79.02 Long term (current) use of antithrombotics/antiplatelets; Z87.891 Personal history of nicotine dependence; Z95.1 Presence of aortocoronary bypass graft; E11.9 Type 2 diabetes mellitus without complications; E78.5 Hyperlipidemia, unspecified; I10 Essential (primary) hypertension; I25.10 Atherosclerotic heart disease of native coronary artery without angina pectoris
CPT/HCPCS: 71045; 71275; 74177; 80053; 83690; 83880; 84484; 85025; 85378; 85610; 85730; 93005; 96374; 96375; 96376; 99285; J2270; J2405; J2470; J7040